=== PATIENT | female | born 1955 | race Caucasian/White ===

== ENCOUNTER → 2017-07-10 10:01 | Outpatient (POV) | payer MEDICARE, SELFPAY | PROVIDERS: Visit Provider Physician Assistant | DX: Z00.00 Encounter for general adult medical examination without abnormal findings (principal) ==

== ENCOUNTER → 2017-12-11 09:35 | Outpatient (POV) | payer MEDICARE, SELFPAY ==
[2017-12-11 11:20] LABS: Basophils # 0.1 K/mm3 (0-0.2); Basophils % 0.9 % (0.1-2.0); Eosinophils # 0.3 K/mm3 (0.0-0.4); Eosinophils % 4.7 % (0.1-12.0); Hematocrit 38.7 % (37.0-47.0); Hemoglobin 12.7 g/dL (12.2-16.2); Lymphocytes % 38.4 K/mm3 (10-50); Mean Corpuscular HGB Conc 32.9 g/dL (31.8-35.4); Mean Corpuscular Hemoglobin 32.1 pg (27.0-31.2); Mean Corpuscular Volume 97.8 fl (81-99); Mean Platelet Volume 8.4 fl (7.4-10.4); Monocytes # 0.4 K/mm3 (0.1-1.0); Monocytes % 7.9 % (1.7-9.3); Neutrophils # 2.5 K/mm3 (1.8-7.8); Platelet Count 230 K/mm3 (142-424); Red Blood Count 3.95 M/mm3 (4.20-5.40); White Blood Count 5.2 K/mm3 (4.8-10.8)
[2017-12-11 12:58] LABS: Alanine Aminotransferase 28 U/L (12-78); Albumin Level 4.5 gm/dL (3.4-5.0); Albumin/Globulin Ratio 1.6 (1.1-1.8); Alkaline Phosphatase 102 U/L (46-116); Anion Gap 16.3 mEq/L (5-15); Aspartate Amino Transferase 23 U/L (15-37); Bilirubin,Total 0.7 mg/dL (0.2-1.0); Blood Urea Nitrogen 11 mg/dL (7-18); Calcium 9.5 mg/dL (8.5-10.1); Carbon Dioxide 26 mmol/L (21.0-32.0); Chloride 105 mmol/L (98-107); Creatinine,Serum 1.08 mg/dL (0.55-1.02); Estimated Glomerular Filt Rate 52 ml/min (>60); GFR (African American) 62 ML/MIN (>60); Globulin 2.9 gm/dl (1.3-3.2); Glucose 99 mg/dL (74-106); Potassium 4.3 mmoL/L (3.5-5.1); Sodium 143 mmol/L (136-145); Total Protein,Serum 7.4 gm/dL (6.4-8.2)
== END ==
PROVIDERS: Visit Provider Physician Assistant
DX: L40.0 Psoriasis vulgaris (principal); Z79.899 Other long term (current) drug therapy
CPT/HCPCS: 36415; 80053; 85025

== ENCOUNTER → 2018-04-17 11:48 | Outpatient (POV) | payer MEDICARE, SELFPAY | PROVIDERS: Visit Provider Dermatology | DX: L40.0 Psoriasis vulgaris (principal); Z79.899 Other long term (current) drug therapy | CPT/HCPCS: 36415; 86480 ==

== ENCOUNTER → 2018-09-27 09:44 | Outpatient (CLI) | payer MEDICARE, SELFPAY ==
--- NOTE | 2018-09-27 09:48 | MM_ITS ---
MM Dig screening mamm BI w/CAD ORDERING PHYSICIAN : Khadijah Marques PATIENT AGE: 63 years GENDER: Female COMPARISON: January 2017, December 2015, November 2014. & 2014. Ultrasound from 2013 INDICATION: ITS.. Routine screening with no hormones no new complaints. Family history paternal aunt with breast cancer postmenopausal TECHNIQUE: Standard CC and MLO images were obtained. R2 CAD reviewed. FINDINGS: Mild to moderate residual fibroglandular elements are seen at superior right breast bilaterally most evident on the right. These yield mild asymmetry which is similar to previous studies RIGHT BREAST:. No new areas of significant concern The more evident asymmetric area of of glandular tissue at the upper outer quadrant right breast is a long-standing feature which is been present on studies dating back to at least 2013. Previous ultrasounds here of show no abnormality either. No new areas of concern otherwise follow-up in one year recommended. LEFT BREAST:No new areas of concern. Follow-up in one year. IMPRESSION: Stable bilateral mammogram with no significant new findings. Stable mild area of fibroglandular asymmetry again seen at superior right breast. Unchanged Bilateral follow-up in one year recommended BI-RADS Category: 2 Benign Finding(s) RECOMMENDED FOLLOW-UP: 1YR 1 YEAR FOLLOW-UP (A letter has been sent to the patient regarding results of the study.)
== END ==
PROVIDERS: PCP Internal Medicine Adolescent Medicine; Visit Provider Nurse Practitioner Family
DX: Z12.31 Encounter for screening mammogram for malignant neoplasm of breast (principal)
CPT/HCPCS: 77067

== ENCOUNTER → 2018-11-27 09:36 | Outpatient (CLI) | payer MEDICARE, SELFPAY ==
[2018-11-27 14:18] LABS: Basophils % 0.5 % (0.1-2.0); Eosinophils # 0.4 K/mm3 (0.0-0.4); Eosinophils % 6.1 % (0.1-12.0); Hematocrit 35.3 % (37.0-47.0); Hemoglobin 12.4 g/dL (12.2-16.2); Mean Corpuscular Hemoglobin 33.1 pg (27.0-31.2); Mean Corpuscular Volume 94.4 fl (81-99); Mean Platelet Volume 8.5 fl (7.4-10.4); Monocytes # 0.3 K/mm3 (0.1-1.0); Monocytes % 5.6 % (1.7-9.3); Neutrophils # 2.4 K/mm3 (1.8-7.8); Neutrophils % 38.7 % (37.0-80.0); Platelet Count 241 K/mm3 (142-424); Red Blood Count 3.74 M/mm3 (4.20-5.40); Red Cell Distribution Width 12.5 % (11.5-17.5); White Blood Count 6.1 K/mm3 (4.8-10.8)
[2018-11-27 14:32] LABS: Alanine Aminotransferase 31 U/L (12-78); Albumin Level 4.1 gm/dL (3.4-5.0); Albumin/Globulin Ratio 1.6 (1.1-1.8); Alkaline Phosphatase 73 U/L (46-116); Anion Gap 14.1 mEq/L (5-15); Aspartate Amino Transferase 21 U/L (15-37); Bilirubin,Total 1.1 mg/dL (0.2-1.0); Blood Urea Nitrogen 9 mg/dL (7-18); Calcium 8.7 mg/dL (8.5-10.1); Carbon Dioxide 28 mmol/L (21.0-32.0); Chloride 101 mmol/L (98-107); Chol/HDL Ratio 2.7 (1-3.5); Cholesterol 124 mg/dL (140-200); Creatinine,Serum 1.22 mg/dL (0.55-1.02); Estimated Glomerular Filt Rate 45 ml/min (>60); GFR (African American) 54 ML/MIN (>60); Globulin 2.6 gm/dl (1.3-3.2); Glucose 123 mg/dL (74-106); HDL Cholesterol 46 mg/dL (29-89); LDL Cholesterol 41 mg/dL (0-130); Potassium 4.1 mmoL/L (3.5-5.1); Sodium 139 mmol/L (136-145); Thyroid Stimulating Hormone 1.68 uIU/ml (0.358-3.740); Total Protein,Serum 6.7 gm/dL (6.4-8.2); Triglycerides 183 mg/dL (30-200); VLDL Cholesterol 37 mg/dL (0-40)
[2018-11-28 18:34] LABS: Hemoglobin A1C 4.9 % (0.0-7.0)
== END ==
PROVIDERS: PCP Nurse Practitioner Family; Visit Provider Nurse Practitioner Family
DX: J43.1 Panlobular emphysema (principal); E78.5 Hyperlipidemia, unspecified; E03.9 Hypothyroidism, unspecified; R73.9 Hyperglycemia, unspecified
CPT/HCPCS: 36415; 80053; 80061; 83036; 84443; 85025

== ENCOUNTER → 2018-12-11 09:55 | Outpatient (POV) | payer MEDICARE, SELFPAY | PROVIDERS: Visit Provider Dermatology | DX: Z00.00 Encounter for general adult medical examination without abnormal findings (principal) ==

== ENCOUNTER → 2019-01-25 13:37 | Outpatient (CLI) | payer MEDICARE, SELFPAY ==
--- NOTE | 2019-01-25 13:42 | CT_ITS ---
CT lung screening EXAM: CT LUNG LOW DOSE WO CONTRAST HISTORY: 30 pack-year smoking history, asymptomatic for lung cancer ITS.REASON: CURRENT TOBACCO USE ORDERING PHYSICIAN: Sixto Savage MD PATIENT AGE: 63 years COMPARISON: 10/17/2016 TECHNIQUE: The exam was performed on a GE Light Speed [address] scanner using 0.90 mGy CTDI. A low dose helical CT CHEST was performed on a multi-detector scanner. All CT scans at the facility use one or more dose reduction, viz: automated exposure control, ma/kV adjustment per patient size (including targeted exams where dose is matched to indication, i.e. head), or iterative reconstruction technique. The LDCT was performed in a facility that meets the criteria for the screening program. Data regarding this exam was submitted to ACR which is an approved registry. The order for this exam indicates that it came as a result of a lung cancer screening counseling shard decision-making visit that included all the elements required of such a visit including smoking cessation. The radiologist interpreting this exam meets the CMS criteria for the LDCT lung cancer screening program. The exam is reported using the Lung-RADS classification scale and reported to the ACR registry. NOTE: This study was performed for the specific purposes of lung cancer screening and is not an alternative to diagnostic chest CT. RADIATION DOSE: CTDI vol(CT dose Index-volume) = 2.90mG DLP (Dose Length Product) = 102.90 mGcm FINDINGS: Hyperinflation with attenuation of the peripheral pulmonary vessels consistent with COPD. There are scattered small pulmonary nodular opacities most of which are not significantly changed. A new 5 mm opacity is present in the right lung base laterally axial image #58. A 5 mm nodule is present in left upper lobe unchanged. There is some mild calcification in the right adrenal gland unchanged. Old granulomatous disease . IMPRESSION: 1. Lung RADS Category: 3, probably benign. 5 mm nodule right lower lobe 2. Other findings: COPD, old granulomatous disease RECOMMENDATIONS: [address] follow-up
--- NOTE | 2019-01-25 13:42 | XR_ITS ---
XR DEXA axial skeleton HISTORY: ITS.REASON: POST MENOPAUSAL SCREENING ORDERING PHYSICIAN: Sixto Savage MD PATIENT AGE: 63 years COMPARISON: 02/08/2017 FINDINGS: The BMD measured at the Left femoral neck is 0.844 g/cm squared with a T score of -1.4. This is considered Osteopenic according to the World Health Organization criteria. Fracture risk is Moderate. Treatment is advised. L1 L4 density has a T score of -0.2 and has decreased by 4.6% the mean density of the hips has decreased by 2% IMPRESSION: Osteopenia with moderate fracture risk. Treatment is advised. Suggest follow-up exam January 2021
== END ==
PROVIDERS: Visit Provider Internal Medicine Adolescent Medicine
DX: Z12.2 Encounter for screening for malignant neoplasm of respiratory organs (principal); Z87.891 Personal history of nicotine dependence; Z78.0 Asymptomatic menopausal state; Z13.820 Encounter for screening for osteoporosis
CPT/HCPCS: 77080

== ENCOUNTER → 2019-02-05 13:18 | Outpatient (CLI) | payer MEDICARE, SELFPAY ==
[2019-02-10 16:27] LABS: QuantiFERON-TB Gold Plus Negative (Negative)
== END ==
PROVIDERS: Visit Provider Dermatology
DX: L40.0 Psoriasis vulgaris (principal); Z79.899 Other long term (current) drug therapy
CPT/HCPCS: 36415; 86480

== ENCOUNTER → 2019-03-26 08:30 | Outpatient (POV) | payer MEDICARE, SELFPAY | PROVIDERS: Visit Provider Dermatology | DX: Z00.00 Encounter for general adult medical examination without abnormal findings (principal) ==

== ENCOUNTER 2019-03-30 11:28 | Observation (INO) ==
--- NOTE | 2019-03-30 11:41 | History & Physical Report ---
*Admission Date: 03/30/19 *Chief complaint: SOA/chest pain *History of present illness: Patient has noted chest pain over the past year or but has been very intermittent, but over the past 4 or 5 days it has accelerated and she's been having multiple episodes when she is driving, walking or moving about in her home that she describes as a tightness in her chest that goes up into both sides of her throat. Notes associated shortness of air and diaphoresis. No history of cardiac disease, but multiple risk factors with hyperlipidemia, smoking issues and psoriatic arthritis. Has never had stress testing or cardiac workup. Presented to my office this morning where EKG showed no ST changes but slightly prolonged QT interval, but given her significant risk factors she was admitted to hospital with diagnoses of unstable angina for cardiology consultation. [facility] History I have reviewed the patient's past medical history: Yes Medical History: Reports:: Hyperlipidemia Denies:: Diabetes Mellitus Type 1, Diabetes Mellitus Type 2, Internal Pacem samantha, Lung Disease, Seizures *Have you ever received a pneumonia vaccine?: Yes *Have you received a flu vaccine this season?: No Comment:: Psoriatic arthritis. History of depression. Remote alcoholism. IN remission Other Surgeries: Yes: Colonoscopy (2016 - benign polyps), Dilation and Curettage, Tubal Ligation. No: Pacemaker - *Social History Smoking Status: Current every day smoker Alcohol Intake: former Substance Use Type: denies use *Occupational Status:: employed *Travel in the last 8 weeks: None Family Hx:: No significant family history Review of Systems - Review of Systems Review of systems:: pertinent systems reviewed and negative unless documented be low - *Cardiovascular Reports chest pain, Reports chest pain at rest, Reports shortness of breath, Reports rapid, pounding, or irregular heartbeat - *Respiratory Reports shortness of breath with activity Meds Home Medications Medication Instructions Recorded Confirmed Type Adalimumab [Humira Pen] 40 mg SQ WEEKLY 03/08/19 03/30/19 History Atorvastatin Calcium [Atorvastatin 40 mg PO HS 03/08/19 03/30/19 History 40mg Tab] Calcium Carb/Vitamin D3/Vit K1 1 each PO DAILY 03/08/19 03/30/19 History [Calcium + D Soft Chewable Tab] Gabapentin 600 mg PO BID 03/08/19 03/30/19 History Levothyroxine Sodium [Synthroid 0 mcg PO DAILY 03/08/19 03/30/19 History 25mcg (0.025mg) tablet] Meloxicam 7.5 mg PO DAILY 03/08/19 03/30/19 History Paroxetine Mesylate [Pexeva] 40 mg PO DAILY 03/08/19 03/30/19 History Trazodone HCl 100 mg PO HS 03/08/19 03/30/19 History Albuterol Sulfate [Proair 90 mcg IH QID PRN 03/30/19 03/30/19 History Respiclick] Cetirizine HCl 10 mg PO DAILY 03/30/19 03/30/19 History Clobetasol Propionate 50 ml TP BID 03/30/19 03/30/19 History Fluticasone Propionate [Flovent 50 mcg IH DAILY 03/30/19 03/30/19 History Diskus] Allergies Allergy/AdvReac Type Severity Reaction Status Date / Time bacitracin Allergy Rash Verified 03/30/19 13:49 [From Neosporin ([id number])] neomycin Allergy Rash Verified 03/30/19 13:49 [From Neosporin ([id number])] polymyxin B Allergy Rash Verified 03/30/19 13:49 [From Neosporin ([id number])] Exam - Constitutional no acute distress, average body habitus, cooperative - *Routine HEENT Exam Head: Present: normocephalic, atraumatic Eye: Present: EOMI, PERRL ENT: Present: mucous membranes moist - *Routine Neck Exam Present: supple. Absent: JVD, carotid bruit, lymphadenopathy - *Routine Respiratory Exam Present: CTA bilaterally - *Routine Cardiovascular Exam Present: RRR, Normal S1, Normal S2. Absent: murmur - *Routine Abdominal Exam Present: soft, normoactive bowel sounds. Absent: tenderness - *Routine Extremities Exam Absent: cyanosis, clubbing, edema - *Routine Skin Exam Present: warm. Absent: rash - *Routine Neurological Exam Present: alert, oriented X3 Assessment and Plan (1) Unstable angina Current visit: Yes Status: Acute Category: Medical Code(s): I20.0 - Unstable angina Significant symptoms.... poor risk factor profile... admit for cards eval and needs [facility]. Stress testing will not change managment plan. (2) Personal history of nicotine dependence Current visit: Yes Status: Acute Category: Medical Code(s): Z87.891 - Personal history of nicotine dependence (3) Hyperlipemia Current visit: Yes Status: Acute Category: Medical Code(s): E78.5 - Hyperlipidemia, unspecified (4) Hypertension Current visit: Yes Status: Acute Category: Medical Code(s): I10 - Essential (primary) hypertension
[2019-03-30 12:41] LABS: Alanine Aminotransferase 26 U/L (12-78); Albumin Level 4.5 gm/dL (3.4-5.0); Albumin/Globulin Ratio 1.4 (1.1-1.8); Alkaline Phosphatase 74 U/L (46-116); Aspartate Amino Transferase 26 U/L (15-37); Bilirubin,Total 0.6 mg/dL (0.2-1.0); Blood Urea Nitrogen 11 mg/dL (7-18); Calcium 9.4 mg/dL (8.5-10.1); Carbon Dioxide 28 mmol/L (21.0-32.0); Chloride 103 mmol/L (98-107); Globulin 3.2 gm/dl (1.3-3.2); Glucose 91 mg/dL (74-106); Sodium 138 mmol/L (136-145); Total Protein,Serum 7.7 gm/dL (6.4-8.2)
[2019-03-30 14:17] LABS: Basophils # 0.1 K/mm3 (0-0.2); Basophils % 1.1 % (0.1-2.0); Eosinophils # 0.5 K/mm3 (0.0-0.4); Eosinophils % 6.7 % (0.1-12.0); Hematocrit 38.9 % (37.0-47.0); Hemoglobin 12.2 g/dL (12.2-16.2); Lymphocytes # 3.5 K/mm3 (0.7-4.5); Lymphocytes % 47.7 % (10-50); Mean Corpuscular HGB Conc 31.3 g/dL (31.8-35.4); Mean Corpuscular Volume 102.1 fl (81-99); Mean Platelet Volume 8.4 fl (7.4-10.4); Monocytes # 0.6 K/mm3 (0.1-1.0); Monocytes % 7.9 % (1.7-9.3); Neutrophils # 2.7 K/mm3 (1.8-7.8); Neutrophils % 36.5 % (37.0-80.0); Platelet Count 303 K/mm3 (142-424); Red Blood Count 3.82 M/mm3 (4.20-5.40); Red Cell Distribution Width 13.4 % (11.5-17.5); White Blood Count 7.4 K/mm3 (4.8-10.8)
--- NOTE | 2019-03-30 18:49 | Discharge Summary ---
General - General Admission date:: 03/30/19 Discharge date: 03/30/19 HPI HPI: Patient has noted chest pain over the past year or but has been very intermittent, but over the past 4 or 5 days it has accelerated and she's been having multiple episodes when she is driving, walking or moving about in her home that she describes as a tightness in her chest that goes up into both sides of her throat. Notes associated shortness of air and diaphoresis. No history of cardiac disease, but multiple risk factors with hyperlipidemia, smoking issues and psoriatic arthritis. Has never had stress testing or cardiac workup. Presented to my office this morning where EKG showed no ST changes but slightly prolonged QT interval, but given her significant risk factors she was admitted to hospital with diagnoses of unstable angina for cardiology consultation. Hospital Course Hospital Course: Patient was admitted to hospital, ruled out for STEMI, but because of her significant symptomatology and risk factors, namely heavy cigarette use, hypertension and hyperlipidemia, she was subjected to left heart catheterization. Please see report below: ANGIOGRAPHIC RESULTS The left main artery Normal The left anterior descending artery Is proximally normal and a tortuous vessel with no stenosis greater than 10% throughout The circumflex artery Gives rise to a large ramus intermedius which has a proximal concentric 20 to 30% stenosis. The remaining circumflex artery has mild 10% luminal irregularities. The vessel is tortuous throughout The right coronary artery Is a large dominant vessel and has proximal and mid vessel smooth 10 to 20% stenoses The DAILY ventriculogram reveals Normal 65% The left ventricular end-diastolic pressure 15 mmHg IMPRESSION Mild [id number] coronary artery disease Normal ejection fraction Very minimally elevated LVEDP PLAN 1. Medical management 2. Evaluation of noncardiac chest pain 3. Standard risk factor modification Given this result patient was counseled about tobacco cessation. She is willing to try nicotine patch, we will also initiate aspirin therapy, and I will follow her in the office in the next week to 10 days. Objective Vital signs: Temp Pulse Resp BP Pulse Ox 98.4 F 82 19 112/62 96 03/30/19 15:59 03/30/19 18:40 03/30/19 18:40 03/30/19 18:40 03/30/19 18:40 no acute distress - *Routine HEENT Exam Head: Present: normocephalic Eye: Present: EOMI - *Routine Neck Exam Present: supple, full ROM. Absent: JVD - *Routine Respiratory Exam Present: CTA bilaterally - *Routine Cardiovascular Exam Present: RRR, Normal S1, Normal S2 - *Routine Abdominal Exam Present: soft, normoactive bowel sounds - *Routine Extremities Exam Present: full ROM. Absent: cyanosis, clubbing, edema - *Routine Skin Exam Present: intact. Absent: cyanosis - *Routine Neurological Exam Present: alert, oriented X3 - Detailed Eye Exam Eyelids: Left normal inspection Results Labs on day of discharge: Labs from last 24 hours 03/30/19 03/30/19 03/30/19 12:20 12:20 12:20 WBC 7.4 RBC 3.82 L Hgb 12.2 Hct 38.9 MCV 102.1 H MCH 32.0 H MCHC 31.3 L RDW 13.4 Plt Count 303 MPV 8.4 Neut % (Auto) 36.5 L Lymph % (Auto) 47.7 Stark % (Auto) 7.9 Eos % (Auto) 6.7 Baso % (Auto) 1.1 Neut # (Auto) 2.7 Lymph # (Auto) 3.5 [place] # (Auto) 0.6 Eos # (Auto) 0.5 H Baso # (Auto) 0.1 Sodium 138 Potassium 4.0 Chloride 103 Carbon Dioxide 28 Anion Gap 11.0 BUN 11 Creatinine 1.13 H Estimated GFR 49 L Est GFR ( Amer) 59 Glucose 91 Calcium 9.4 Magnesium 1.8 Total Bilirubin 0.6 AST 26 ALT 26 Alkaline Phosphatase 74 Troponin I < 0.02 Total Protein 7.7 Albumin 4.5 Globulin 3.2 Albumin/Globulin Ratio 1.4 DS: Diagnosis - Discharge Diagnosis (1) Unstable angina Status: Ruled-out (2) Personal history of nicotine dependence Status: Chronic (3) Hyperlipemia Status: Chronic (4) Hypertension Status: Chronic (5) Coronary atherosclerosis of [place] coronary vessel Status: Chronic Discharge Plan - Patient Discharge Instructions ACTIVITY: Continue current activity DIET: continue same diet - Follow up Plan Follow up with: Sixto Savage MD [Primary Care Provider] - 04/09/19 Disposition: Home, Self-M[facility] Medications: Home Medications Medication Instructions Recorded Confirmed Type Adalimumab [Humira Pen] 40 mg SQ WEEKLY 03/08/19 03/30/19 History Atorvastatin Calcium [Atorvastatin 40 mg PO HS 03/08/19 03/30/19 History 40mg Tab] Calcium Carb/Vitamin D3/Vit K1 1 each PO DAILY 03/08/19 03/30/19 History [Calcium + D Soft Chewable Tab] Gabapentin 600 mg PO BID 03/08/19 03/30/19 History Levothyroxine Sodium [Synthroid 0 mcg PO DAILY 03/08/19 03/30/19 History 25mcg (0.025mg) tablet] Meloxicam 7.5 mg PO DAILY 03/08/19 03/30/19 History Paroxetine Mesylate [Pexeva] 40 mg PO DAILY 03/08/19 03/30/19 History Trazodone HCl 100 mg PO HS 03/08/19 03/30/19 History Albuterol Sulfate [Proair 90 mcg IH QID PRN 03/30/19 03/30/19 History Respiclick] Aspirin [Aspirin 81mg EC Tab] 81 mg PO DAILY #90 tablet. 03/30/19 Rx Cetirizine HCl 10 mg PO DAILY 03/30/19 03/30/19 History Clobetasol Propionate 50 ml TP BID 03/30/19 03/30/19 History Fluticasone Propionate [Flovent 50 mcg IH DAILY 03/30/19 03/30/19 History Diskus] Nicotine [Nicoderm 21mg/24hr 21 mg TD DAILY #30 patch.td24 03/30/19 Rx patch] Prescriptions/Medication Reconciliation: New Aspirin [Aspirin 81mg EC Tab] 81 mg PO DAILY #90 tablet. Nicotine [Nicoderm 21mg/24hr patch] 21 mg TD DAILY #30 patch.td24 Continued Atorvastatin Calcium [Atorvastatin 40mg Tab] 40 mg PO HS Meloxicam 7.5 mg PO DAILY Gabapentin 600 mg PO BID Adalimumab [Humira Pen] 40 mg SQ WEEKLY Levothyroxine Sodium [Synthroid 25mcg (0.025mg) tablet] 0 mcg PO DAILY Fluticasone Propionate [Flovent Diskus] 50 mcg IH DAILY Cetirizine HCl 10 mg PO DAILY Clobetasol Propionate 50 ml TP BID Albuterol Sulfate [Proair Respiclick] 90 mcg IH QID PRN PRN Reason: Dyspnea Trazodone HCl 100 mg PO HS Paroxetine Mesylate [Pexeva] 40 mg PO DAILY Calcium Carb/Vitamin D3/Vit K1 [Calcium + D Soft Chewable Tab] 1 each PO DAILY - Problem Reconciliation Problems Reviewed?: Yes
== END 2019-03-30 19:47 | disposition home or self-care (01) ==
LOC: 2ND 11:28 → INTOOBSV 11:28
PROVIDERS: ADMIT Internal Medicine Adolescent Medicine; ATTEND Internal Medicine Adolescent Medicine
CPT/HCPCS: 71020; 71046; 80053; 83735; 84484; 85025; 93458; 99152; C1725; C1769; G0378; J1644; Q9967

== ENCOUNTER → 2019-04-24 10:48 | Outpatient (CLI) | payer MEDICARE, SELFPAY | PROVIDERS: PCP Internal Medicine Adolescent Medicine; Visit Provider Physician Assistant | DX: R06.00 Dyspnea, unspecified; I20.0 Unstable angina; E78.5 Hyperlipidemia, unspecified; I10 Essential (primary) hypertension; Z87.891 Personal history of nicotine dependence | CPT/HCPCS: 93306 ==

== ENCOUNTER → 2019-08-06 09:59 | Outpatient (CLI) | payer MEDICARE, SELFPAY ==
[2019-08-06 14:38] LABS: Alanine Aminotransferase 27 U/L (9-52); Albumin Level 4.2 g/dL (3.4-5.0); Albumin/Globulin Ratio 1.8 (1.1-1.8); Alkaline Phosphatase 72 U/L (46-116); Anion Gap 14.1 mEq/L (5-15); Aspartate Amino Transferase 20 U/L (15-37); Bilirubin,Total 0.5 mg/dL (0.2-1.0); Blood Urea Nitrogen 9 mg/dL (7-18); Calcium 9.1 mg/dL (8.5-10.1); Carbon Dioxide 29 mmol/L (21.0-32.0); Chloride 105 mmol/L (98-107); Chol/HDL Ratio 2.4 (1-3.5); Cholesterol 124 mg/dL (140-200); Creatinine,Serum 1.17 mg/dL (0.55-1.02); Estimated Glomerular Filt Rate 47 ml/min (>60); GFR (African American) 57 ML/MIN (>60); Globulin 2.4 gm/dl (1.3-3.2); Glucose 90 mg/dL (74-106); HDL Cholesterol 52 mg/dL (29-89); LDL Cholesterol 48 mg/dL (0-130); Potassium 4.1 mmoL/L (3.5-5.1); Sodium 144 mmol/L (137-145); Thyroid Stimulating Hormone 1.33 uIU/ml (0.358-3.740); Total Protein,Serum 6.6 g/dL (6.4-8.2); Triglycerides 122 mg/dL (30-200); VLDL Cholesterol 24 mg/dL (0-40)
[2019-08-07 16:29] LABS: Vitamin D 25 Hydroxy 56.1 ng/mL (30.0-100.0)
== END ==
PROVIDERS: PCP Nurse Practitioner Family; Visit Provider Nurse Practitioner Family
DX: E78.5 Hyperlipidemia, unspecified (principal); E03.9 Hypothyroidism, unspecified; M85.80 Other specified disorders of bone density and structure, unspecified site
CPT/HCPCS: 36415; 80053; 80061; 82652; 84443

== ENCOUNTER 2019-11-25 15:33 | Emergency (ER) | payer MEDICARE, SELFPAY ==
--- NOTE | 2019-11-25 15:45 | PC.NURSE ---
WHILE SITTING IN [facility] WAITING ROOM FILLING OUT HER PAPERWORK, PATIENT STATES THAT SHE WANTS TO BE SEEN IN ER INSTEAD. PATIENT TAKEN OVER PER THIS NURSE AFTER SPEAKING WITH REGISTRATION. Desi KEARNEY RN MADE AWARE OF CIRCUMSTANCES
[2019-11-25 15:50] VITALS: BP 124/63; PULSE 85; RESP 22; TEMP 36.7; O2SAT 94; BMI 26.9
--- NOTE | 2019-11-25 16:00 | PC.NURSE ---
asked pt for a urine sample and she states that she doesn't not have to pee right now. Informed pt that as soon as she could we would need a sample. pt understands.
--- NOTE | 2019-11-25 16:01 | CT_ITS ---
PROCEDURE: CT LUMBAR SPINE WO CON CLINICAL HISTORY: BACK PAIN Low back pain COMPARISON: No exams were available for comparison TECHNIQUE: Axial images obtained with sagittal and coronal reformats. All CT scans at the facility use one or more dose reduction, viz: automated exposure control, ma/kV adjustment per patient size (including targeted exams where dose is matched to indication, i.e. head), or iterative reconstruction technique. FINDINGS: There is degenerative disc disease in the lower thoracic spine. L1-L2: Unremarkable. L2-L3: Mild bulging disc. L3-L4: Mild bulging disc.. There is facet and ligamentum hypertrophy with mild bilateral lateral recess and mild bilateral foraminal narrowing. L4-5: Mild anterolisthesis of L4 of 3-4 mm with bulging disc along with facet ligamentum hypertrophy with moderate bilateral foraminal narrowing L5-S1: Unremarkable. No fracture or dislocation. There is mildly enlarged right adrenal gland with some coarse calcification. There is a prominent duodenal diverticulum. IMPRESSION: 1. Mild multilevel lumbar spondylosis as described above 2. No acute fracture Dictated by: Jesus Do MD 11/25/2019 21:38 Electronically signed by Jesus Do MD in [place] 11/25/2019 21:38
--- NOTE | 2019-11-25 16:08 | PC.NURSE ---
PT ATTEMPTING TO PROVIDE URINE SAMPLE AT THIS TIME
--- NOTE | 2019-11-25 16:18 | HMH.EDBACK ---
ED Disposition Clinical Impression: Lumbar radiculopathy, Lumbar facet joint pain Disposition: Home, Self-Care Condition on Discharge: Good Instructions: DI for Back Pain With Sciatica Additional Instructions: use meds and call pcp in am Prescriptions: Hydrocod/Acet 5/325 mg [[place] 5/325mg tablet] 1 tab PO TID PRN #7 tab PRN Reason: Moderate To Severe Pain Prescription Printed predniSONE [Prednisone 20mg Tab] 20 mg PO BID #10 tab Prescription Printed Referrals: Sixto Savage MD [Primary Care Provider] - - Critical Care Critical Care Time: No Attestation: On 11/25/19, the high probability of a clinically significant, sudden or life threatening deterioration of the following system(s) required my full and direct attention, intervention and personal management. The time I documented below is in addition to time spent performing reported procedures but includes the following listed in this critical care notation. Medical Decision Making - Medical Records Medical records reviewed: Yes: I reviewed the patient's medical records. - Jaivd Inquiry Pt receiving controlled substance: No Vital Signs: 11/25/19 15:50 Temperature 98.1 F Temperature Source Oral Pulse Rate [Left Radial] 85 Respiratory Rate 22 Blood Pressure [Left Arm] 124/63 Blood Pressure Mean [Left Arm] 83 Blood Pressure Source [Left Arm] Automatic Cuff Blood Pressure Position [Left Arm] Right Lateral 02 Sat by Pulse Oximetry 94 L Oxygen Delivery Method Room Air - Lab Data Lab results reviewed: Yes: I reviewed the patient's lab results. Lab Results 11/25/19 16:15: Urine Color Yellow, Urine Appearance Clear, Urine pH 6.0, Ur Specific [place] 1.015, Urine Protein Negative, Urine Glucose (UA) Negative, Urine Ketones Negative, Urine Blood Negative, Urine Nitrate Negative, Urine Bilirubin Negative, Urine Urobilinogen 0.2, Ur Leukocyte Esterase Negative, Urine WBC 3-5, Ur Squamous Epith Cells Occasional, Urine Bacteria Trace 11/25/19 16:15: Urine Opiates Screen Negative, Urine Methadone Screen Negative, Ur Barbituates Screen Negative, Ur Phencyclidine Scrn Negative, Ur Amphetamines Screen Negative, U Benzodiazepines Scrn Negative, Urine Cocaine Screen Negative, U Marijuana (THC) Screen Negative 11/25/19 16:20: WBC 8.8, RBC 3.61 L, Hgb 12.3, Hct 35.7 L, MCV 98.9, MCH 34.2 H, MCHC 34.5, RDW 12.9, Plt Count 262, MPV 8.0, Neut % (Auto) 52.8, Lymph % (Auto) 33.8, [place] % (Auto) 6.2, Eos % (Auto) 5.6, Baso % (Auto) 1.6, Neut # (Auto) 4.7, Lymph # (Auto) 3.0, [place] # (Auto) 0.6, Eos # (Auto) 0.5 H, Baso # (Auto) 0.1 11/25/19 16:20: Sodium 136, Potassium 3.7, Chloride 102, Carbon Dioxide 25, Anion Gap 12.7, BUN 14, Creatinine 1.20 H, Estimated Creat Clear 57, Estimated GFR 45 L, Est GFR ( Amer) 55 L, Glucose 103 H, Calcium 8.9, Total Bilirubin 0.5, AST 31, ALT 17, Alkaline Phosphatase 74, C-Reactive Protein 1.1, Total Protein 7.8, Albumin 4.9, Globulin 2.9, Albumin/Globulin Ratio 1.7 Result diagrams: 11/25/19 16:20 11/25/19 16:20 Orders (Tests/Meds): ED MEDICATIONS Discontinued Medications Generic Name Dose Route Start Last Admin Trade Name Natalie PRN Reason Stop Dose Admin Ketorolac Tromethamine 30 mg 11/25/19 16:26 11/25/19 16:48 Toradol 30mg/Ml Vial IV 11/25/19 16:27 30 mg ONCE ONE Administration Methylprednisolone Sodium Succinate 125 mg 11/25/19 16:26 11/25/19 16:48 Solu-Medrol 125mg/2ml Vial IV 11/25/19 16:27 125 mg ONCE ONE Administration Morphine Sulfate 4 mg 11/25/19 16:07 11/25/19 16:23 Morphine 4mg/Ml Syringe IV 11/25/19 16:08 4 mg ONCE ONE Administration Ondansetron HCl 4 mg 11/25/19 16:07 11/25/19 16:23 Zofran 4mg/2ml Vial IV 11/25/19 16:08 4 mg ONCE ONE Administration ORDERS Category Date Time Status CT lumbar spine wo con Stat Cat Scan 11/25/19 16:01 Taken ESR [Erythrocyte Sedimentation Rate] Stat Lab 11/25/19 16:20 Received - CT Data CT Scan: L-Spine T
[2019-11-25 16:33] LABS: Microscopic, Urine URINE MICROSCOPIC (MICROSCOPIC)
--- NOTE | 2019-11-25 16:33 | PC.NURSE ---
Dr Iker peters who is covering for Dr Savage
[2019-11-25 16:34] LABS: Appearance,Urine CLEAR (Clear); Bilirubin,Urine Negative (Negative); Blood, Urine Negative (Negative); Color,Urine YELLOW (Yellow); Glucose,Urine (UA) Negative (Negative); Ketones,Urine Negative (Negative); Leukocyte Esterase,Urine Negative (Negative); Nitrate,Urine Negative (Negative); Protein,Urine Negative (Negative); Specific Gravity, Urine 1.015 (1.005-1.030); Urobilinogen,Urine 0.2 EU/dl (0.2)
[2019-11-25 16:44] LABS: Chloride 102 mmol/L (98-107); Potassium 3.7 mmoL/L (3.5-5.1); Sodium 136 mmol/L (136-145)
[2019-11-25 16:45] LABS: Basophils # 0.1 K/mm3 (0-0.2); Basophils % 1.6 % (0.1-2.0); Eosinophils # 0.5 K/mm3 (0.0-0.4); Eosinophils % 5.6 % (0.1-12.0); Hematocrit 35.7 % (37.0-47.0); Hemoglobin 12.3 g/dL (12.2-16.2); Lymphocytes % 33.8 % (10-50); Mean Corpuscular HGB Conc 34.5 g/dL (31.8-35.4); Mean Corpuscular Hemoglobin 34.2 pg (27.0-31.2); Mean Corpuscular Volume 98.9 fl (81-99); Monocytes # 0.6 K/mm3 (0.1-1.0); Monocytes % 6.2 % (1.7-9.3); Neutrophils # 4.7 K/mm3 (1.8-7.8); Neutrophils % 52.8 % (37.0-80.0); Platelet Count 262 K/mm3 (142-424); Red Blood Count 3.61 M/mm3 (4.20-5.40); Red Cell Distribution Width 12.9 % (11.5-17.5); White Blood Count 8.8 K/mm3 (4.8-10.8)
[2019-11-25 16:46] LABS: Amphetamine/Metha Screen,Urine Negative ng/ml (<1000)
[2019-11-25 16:46] LABS: Alanine Aminotransferase 17 U/L (12-78); Aspartate Amino Transferase 31 U/L (14-36); Blood Urea Nitrogen 14 mg/dl (7-17); Creatinine Clearance Estimated 57 mL/min (50-200); Estimated Glomerular Filt Rate 45 ml/min (>60); GFR (African American) 55 ML/MIN (>60)
[2019-11-25 16:47] LABS: Barbiturates Screen,Urine Negative ng/ml (<200)
[2019-11-25 16:47] LABS: Albumin Level 4.9 g/dl (3.5-5.0); Albumin/Globulin Ratio 1.7 (1.1-1.8); Alkaline Phosphatase 74 U/L (38-126); Anion Gap 12.7 mEq/L (5-15); Bilirubin,Total 0.5 mg/dl (0.2-1.3); Calcium 8.9 mg/dl (8.4-10.2); Carbon Dioxide 25 mmol/L (22.0-30.0); Globulin 2.9 g/dL (1.3-3.2); Glucose 103 mg/dl (74-100); Total Protein,Serum 7.8 g/dl (6.3-8.2)
[2019-11-25 16:48] LABS: Benzodiazepines Screen,Urine Negative ng/ml (<200); Cannabinoid Screen,Urine Negative ng/ml (<50)
[2019-11-25 16:49] LABS: Cocaine Screen,Urine Negative ng/ml (<300)
[2019-11-25 16:50] LABS: Methadone Screen,Urine Negative ng/ml (<300); Opiate Screen,Urine Negative ng/ml (<300)
[2019-11-25 16:51] LABS: Phencyclidine Screen,Urine Negative ng/ml (<25)
--- NOTE | 2019-11-25 17:04 | PC.NURSE ---
SPEAKING WITH DR WHITAKER AT THIS TIME.
[2019-11-25 17:18] LABS: C-Reactive Protein 1.1 mg/L (0-4)
[2019-11-25 17:18] LABS: Bacteria,Urine Trace /lpf; Squamous Epithelial Cell,Urine Occasional #/hpf (0-5)
[2019-11-25 17:31] LABS: Erythrocyte Sedimentation Rate 21 mm/hr (0-30)
[2019-11-25 17:45] VITALS: BP 121/68; PULSE 78; RESP 16; TEMP 36.6; O2SAT 98
== END 2019-11-25 17:46 | disposition home or self-care (01) ==
PROVIDERS: Emergency Provider Emergency Medicine; PCP Internal Medicine Adolescent Medicine
DX: M54.16 Radiculopathy, lumbar region (principal); I10 Essential (primary) hypertension; E78.5 Hyperlipidemia, unspecified; E03.9 Hypothyroidism, unspecified; F33.1 Major depressive disorder, recurrent, moderate; F17.210 Nicotine dependence, cigarettes, uncomplicated
CPT/HCPCS: 72131; 80053; 80305; 81001; 85025; 85651; 86140; 96374; 96375; 99282; 99283; J2405

== ENCOUNTER → 2019-11-26 07:51 | Outpatient (CLI) | payer MEDICARE, SELFPAY ==
--- NOTE | 2019-11-26 07:55 | CT_ITS ---
PROCEDURE: CT LUNG SCREENING CLINICAL INDICATION: H/O TOBACCO USE COMPARISON: LUNGSCREEN CT lung screening from 01/25/2019 TECHNIQUE: The exam was performed on a GE Light Speed [address] scanner using 2.90 mGy CTDI. A low dose helical CT CHEST was performed on a multi-detector scanner. All CT scans at the facility use one or more dose reduction, viz: automated exposure control, ma/kV adjustment per patient size (including targeted exams where dose is matched to indication, i.e. head), or iterative reconstruction technique. The LDCT was performed in a facility that meets the criteria for the screening program. Data regarding this exam was submitted to ACR which is an approved registry. The order for this exam indicates that it came as a result of a lung cancer screening counseling shard decision-making visit that included all the elements required of such a visit including smoking cessation. The radiologist interpreting this exam meets the [facility] criteria for the LDCT lung cancer screening program. The exam is reported using the Lung-RADS classification scale and reported to the ACR registry. NOTE: This study was performed for the specific purposes of lung cancer screening and is not an alternative to diagnostic chest CT. RADIATION DOSE: CTDI vol(CT dose Index-volume) = 2.90mG DLP (Dose Length Product) = 107.07 mGcm Lung Rads Category: FINDINGS: Changes of COPD and old granulomatous disease. Stable small nodular opacities. Minimal atelectatic or fibrotic change right lower lobe. The OTHER FINDINGS: No other pertinent findings evident. IMPRESSION: Lung rads category 2 benign. Recommend annual LDCT Dictated by: Jesus Do MD 12/15/2019 11:22 Electronically signed by Jesus Do MD in [place] 12/15/2019 11:22
--- NOTE | 2019-11-26 07:55 | MM_ITS ---
PROCEDURE: MM DIG SCREENING MAMM BI W/CAD Digital Breast Tomosynthesis Included CLINICAL INDICATION: Screening: There is a history of breast cancer in the patient's paternal aunt and maternal cousin. There has been a previous biopsy left breast for benign disease. COMPARISON: [facility] DIG MAMM-SCREEN SANG from 01/14/2016 [facility] DIG MAMM-SCREEN SANG W/CAD from 01/25/2017 [facility] MM Dig screening mamm BI w/CAD from 09/27/2018 TECHNIQUE: Standard CC and MLO images and 3D Tomosynthesis was obtained. R2 CAD reviewed. FINDINGS: The breasts are composed primarily of fat with minimal scattered fibroglandular densities in each breast. Again noted is minimal asymmetric glandular elements upper-outer quadrant right breast which are stable. There is benign-appearing calcification deep to the nipple of the left breast. There is no suspicious lesion and no suspicious microcalcifications. IMPRESSION: Fatty type breast parenchyma with no suspicious lesions seen BI-RAD Category: 2 Benign Finding(s) FOLLOW-UP: 1YR 1 Year Follow-up (A letter has been sent to the patient regarding results of the study.) Dictated by: Dr. Wang Ayers MD 11/27/2019 12:[address] Wang Ayers MD in [place] 11/27/2019 12:35
== END ==
PROVIDERS: PCP Nurse Practitioner Family; Visit Provider Internal Medicine Adolescent Medicine
DX: Z12.31 Encounter for screening mammogram for malignant neoplasm of breast (principal)
CPT/HCPCS: 77063; 77067

== ENCOUNTER → 2019-12-17 15:01 | Outpatient (CLI) | payer MEDICARE, SELFPAY ==
--- NOTE | 2019-12-17 | XR_ITS ---
PROCEDURE: XR HAND RT MIN 3V CLINICAL INDICATION: COMPARISON: No exams were available for comparison FINDINGS: There is slight dorsal displacement of a transverse fracture of the proximal metaphysis of the proximal phalanx of the 4th digit with overlying soft tissue edema. There is mild degenerate narrowing of the 1st metacarpal-carpal joint. IMPRESSION: Fracture of the 4th digit as above Dictated by: Josue Rosario 12/17/2019 15:37 Electronically signed by Josue Rosario in [place] 12/17/2019 15:37
== END ==
PROVIDERS: PCP Nurse Practitioner Family; Visit Provider Nurse Practitioner Family
DX: M79.641 Pain in right hand (principal); W06.XXXA Fall from bed, initial encounter
CPT/HCPCS: 73130

== ENCOUNTER → 2019-12-18 12:17 | Outpatient (CLI) | payer MEDICARE, SELFPAY ==
--- NOTE | 2019-12-18 12:36 | XR_ITS ---
PROCEDURE: XR CHEST 2V CLINICAL HISTORY: H/O TOBACCO DEPENDENCE,COPD COMPARISON: CXR CHEST(2 VIEWS-NOT PORTABLE) from 02/07/2014 CXR CHEST(2 VIEWS-NOT PORTABLE) from 03/24/2015 XR CHEST 2V from 03/30/2019 FINDINGS: There is a stable 4.5 centimeter calcified density within the left upper lobe. There is lower thoracic scoliosis. Lung [place], cardiac silhouette, and the soft tissues are intact. IMPRESSION: Stable left upper lobe calcified granuloma, clear lung [place] Dictated by: Josue Rosario 12/18/2019 13:22 Electronically signed by Josue Rosario in [place] 12/18/2019 13:22
[2019-12-18 12:46] LABS: Basophils # 0.1 K/mm3 (0-0.2); Basophils % 0.8 % (0.1-2.0); Eosinophils # 0.3 K/mm3 (0.0-0.4); Eosinophils % 3.7 % (0.1-12.0); Hematocrit 36.4 % (37.0-47.0); Hemoglobin 12.6 g/dL (12.2-16.2); Lymphocytes # 2.2 K/mm3 (0.7-4.5); Lymphocytes % 28.1 % (10-50); Mean Corpuscular HGB Conc 34.5 g/dL (31.8-35.4); Mean Corpuscular Hemoglobin 34.2 pg (27.0-31.2); Mean Platelet Volume 7.7 fl (7.4-10.4); Monocytes # 0.5 K/mm3 (0.1-1.0); Monocytes % 6.4 % (1.7-9.3); Neutrophils # 4.8 K/mm3 (1.8-7.8); Neutrophils % 61.1 % (37.0-80.0); Platelet Count 276 K/mm3 (142-424); Red Blood Count 3.68 M/mm3 (4.20-5.40); Red Cell Distribution Width 13.4 % (11.5-17.5); White Blood Count 7.8 K/mm3 (4.8-10.8)
--- NOTE | 2019-12-18 13:09 | ECG_ITS ---
APPROVED REPORT Exam: Resting ECG HR:64 bpm ECG Measurements Heart Rate 64 AXES OH 158 P 15 QRSd 92 QRS 48 QT 454 T 70 QTc 468 <Conclusion> Normal sinus rhythm Nonspecific T wave abnormality Otherwise a normal ECG Electronically signed by : Tate Metzger, 12/18/2019 17:49:01
[2019-12-18 14:04] LABS: Chloride 97 mmol/L (98-107); Potassium 4.6 mmoL/L (3.5-5.1); Sodium 132 mmol/L (136-145)
[2019-12-18 14:07] LABS: Albumin Level 4.9 g/dl (3.5-5.0); Albumin/Globulin Ratio 1.9 (1.1-1.8); Alkaline Phosphatase 76 U/L (38-126); Anion Gap 12.6 mEq/L (5-15); Blood Urea Nitrogen 11 mg/dl (7-17); Carbon Dioxide 27 mmol/L (22.0-30.0); Estimated Glomerular Filt Rate 56 ml/min (>60); GFR (African American) 68 ML/MIN (>60); Globulin 2.6 g/dL (1.3-3.2); Total Protein,Serum 7.5 g/dl (6.3-8.2)
[2019-12-18 14:08] LABS: Alanine Aminotransferase 21 U/L (12-78); Calcium 9.7 mg/dl (8.4-10.2); Glucose 103 mg/dl (74-100)
[2019-12-18 14:09] LABS: Aspartate Amino Transferase 27 U/L (14-36)
[2019-12-18 16:04] LABS: Coronavirus 19 IgG Antibody Negative (Negative); Coronavirus 19 IgM Antibody Negative (Negative)
== END ==
PROVIDERS: Visit Provider Orthopaedic Surgery
DX: Z01.818 Encounter for other preprocedural examination (principal); S62.610B Displaced fracture of proximal phalanx of right index finger, initial encounter for open fracture
CPT/HCPCS: 36415; 71046; 80053; 85025; 86328; 93005

== ENCOUNTER 2019-12-20 11:51 | Day surgery (SDC) | payer MEDICARE, SELFPAY ==
[2019-12-18 12:50] VITALS: BMI 27.6
[2019-12-20] VITALS (8 sets, daily range): BP systolic 108–136; BP diastolic 63–75; PULSE 73–84; RESP 14–20; TEMP 36.4–36.6; O2SAT 93–98
--- NOTE | 2019-12-20 13:37 | P.PN_ITS ---
[facility] Anesthesia Checklist - Patient Identification Patient Identification: Arm Band, Verbal (Name & ) - Structural Data Admitted From: Home Planned Operative Procedure/s: orif 4th finger Verified Documents: History and Physical - NPO Status Verified Time NPO: 00:00 - Chart Verification Results Verified: CBC, BMP - Additional verifications Patient : No Anesthesia Reactions: No Hx Blood Transfusions: No Blood Transfusion Reaction: No Cephalosporin Allergy: No Previous Colonoscopy: Yes - Cardiovascular Assessment Heart Sounds: S1 & S2 Pulse Strength: Baseline Pulse Rhythm: Regular Peripheral Edema: No - Airway Assessment C-Spine Mobility Assessed: Yes TMJ Mobility Assessed: Yes Dentition: Dentures-good fit - Neurological Assessment Level of Consciousness: Awake, Alert, Appropriate Hx Seizures: No Numbness or tingling in extremities: No - Anesthesia Plan Anesthesia Risk discussed: Yes Anesthesia Plan: Verified ASA Class: II Anesthesia Type: General [facility] History I have reviewed the patient's past medical history: Yes Medical History: Reports:: Cancer (skin), Gastroesophageal Reflux Disease(GERD), Hyperlipidemia, Hypertension Denies:: Diabetes Mellitus Type 1, Diabetes Mellitus Type 2, Internal Pacemaker, Lung Disease, MRSA, Seizures *Have you ever received a pneumonia vaccine?: Yes *Have you received a flu vaccine this season?: Yes Other Medical History: Reports: Anemia, Arthritis, Hypothyroidism. Denies: Blood Transfusion Reaction Anesthesia experience/problems:: none Other Surgeries: Yes: Cardiac Catheterization, Colonoscopy, Dilation and Curettage, EGD, Tubal Ligation, Other (skin graft L leg). No: Pacemaker Amputation: No Fractures: No - *Social History Educational Level: Attended College Smoking Status: Current every day smoker Tobacco Type: cigarettes # Packs/Day (cigarettes): 1 Alcohol Intake: current Alcohol Intake Frequency:: a few times a week Substance Use Type: denies use *Occupational Status:: other Housing: house Household Members: spouse *Travel in the last 8 weeks: None Family Hx:: Cancer, Coronary Artery Disease, Diabetes, Heart Attack, Hyperlipidemia, Hypertension
--- NOTE | 2019-12-20 14:37 | XR_ITS ---
PROCEDURE: XR HAND RT MIN 3V CLINICAL INDICATION: IN OR COMPARISON: XR HAND RT MIN 3V from 12/17/2019 FINDINGS: Multiple intraoperative radiographs demonstrate 2 pins traversing a reduced fracture of the proximal metaphysis of the proximal phalanx of the 4th digit. IMPRESSION: As above Dictated by: Josue Rosario 12/20/2019 16:12 Electronically signed by Josue Rosario in [place] 12/20/2019 16:12
--- NOTE | 2019-12-20 15:44 | HMH.ANESI ---
[facility] Anesthesia Record Part I Intake, IV Amount: 1,500 Estimated blood loss (mL): 0 Urine output (mL): 0 Blood Pressure: 110/70 SaO2: 98 Pulse Rate: 84 Respiratory Rate: 14 Temperature: 97.7 F Patient is:: Awake, Stable Stable to PACU at:: 15:40
--- NOTE | 2019-12-20 16:27 | HMH.OPNOTE ---
Date of procedure: 12/20/19 Pre-op Diagnosis:: 1. Fracture proximal phalanx right fourth digit 2. Healing puncture wound, right hand Post-op Diagnosis:: Same Procedure performed:: Close reduction and percutaneous pinning for fracture proximal phalanx fourth digit, right hand Surgeon:: Adonis Rocha MD TAILMAN:: Anil Moon Anesthesia: GETA Estimated blood loss (mL): 1 Clinical Note:: Patient is a 64-year-old [id number] female, who sustained a displaced fracture shaft of the proximal phalanx of the right fourth finger. She sustained the injury when she fell of the bed about 5 days ago. She also sustained a puncture wound at the level of the fourth metacarpophalangeal joint. She presented late to the primary care physician who referred her to my office for further management. Following evaluation in the office, I have prescribed oral antibiotics. Small puncture wound was healing well and no signs of infection were noted. Given the displacement at the fracture site and slight rotational malalignment of the finger, I have recommended surgical remediation in the form of close reduction and internal fixation or open reduction internal fixation as appropriate. Following a detailed discussion about the management options including both nonsurgical and surgical with the patient, she opted for a closed or open reduction and percutaneous pinning/internal fixation as appropriate. Please refer to my office note for full details. Operative findings:: Closed, partially displaced and angulated proximal phalanx fracture of RIGHT fourth digit with mild rotational malalignment of the finger. The fracture was easily reducible and the finger alignment corrected by closed manipulation. The puncture wound over the base of the fourth MCP joint is healing well and no obvious signs of infection noted. Operative note:: On the day of the procedure the patient and and her were met in the preoperative area and positively identified. The site was appropriately marked. A physical examination was performed and documented. I have again discussed the management options including both nonsurgical and surgical. I have discussed the proposed surgery, risks and benefits and alternatives in detail. She wished to proceed with surgical remediation as planned. A physical examination was performed the chart was updated. Patient understood the risks, agreed to proceed with surgery and no guarantees or assurances were given or implied. The patient was brought to the operating room and placed supine on the operating table. The RIGHT upper extremity was placed on a hand table. All the bony prominences were appropriately padded. A general anesthesia was administered by the beverage sales consultant. Administration of preoperative prophylactic antibiotics was confirmed. A well-padded tourniquet cuff was placed over the RIGHT upper arm. The RIGHT hand was prepped and draped in the usual sterile fashion. A preprocedure timeout was performed as per protocol. The limb was exsanguinated with Esmarch bandage and tourniquet cuff inflated to 250 mmHg. Please refer to the nursing notes for the tourniquet time. An examination under anesthesia the puncture wound over the fourth MCP joint was noted to be healing well without any evidence of infection. Then under fluoroscopy the fracture was reduced by closed manipulation and the finger rotation was corrected. The fracture was noted to be reducible in a stable fashion. I then proceeded to stabilize a fracture with K wires. The proposed K wire insertion site was marked on the skin and a small skin incision was over the ulnar aspect of the proximal phalanx medial condyle for a retrograde percutaneous K wire insertion. Then using a 0.45 K wire an entry point was made over the medial condyle of the proximal phalanx under fluoroscopic guidance. Then the K wire was driven through the proximal phalanx across the fracture site to engage the proximal lateral cortex at
--- NOTE | 2019-12-23 10:53 | SUR.OPER ---
0.45 kwires x2 used for right fourth proximal phalanx fracture pinning
[2019-12-25 09:42] VITALS: BP 115/63; PULSE 78; TEMP 36.6
--- NOTE | 2019-12-25 09:42 | HMH.ANESII ---
[facility] Anesthesia Record Part II Discharge Time: 16:10 Destination: [facility] PACU nurse assessment reviewed?: Yes Patient Condition:: Good Anesthesia Complications:: None Swallowing reflex intact?: Yes Cyanosis?: No Blood Pressure: 115/63 Pulse Rate: 78 Temperature: 97.8 F Mental Status: Alert & Oriented Pain level:: 3 Nausea and/or vomitting:: None Intake, IV Amount: 500
== END 2019-12-20 16:42 | disposition home or self-care (01) ==
LOC: OR 11:53
PROVIDERS: PCP Nurse Practitioner Family; Visit Provider Orthopaedic Surgery
DX: S62.614A Displaced fracture of proximal phalanx of right ring finger, initial encounter for closed fracture (principal); E03.9 Hypothyroidism, unspecified; W06.XXXA Fall from bed, initial encounter; Y92.013 Bedroom of single-family (private) house as the place of occurrence of the external cause; I10 Essential (primary) hypertension
CPT/HCPCS: 26727; 73130; 76000; 96374; J2405

== ENCOUNTER → 2019-12-25 13:07 | Outpatient (CLI) | payer MEDICARE, SELFPAY ==
--- NOTE | 2019-12-25 13:14 | XR_ITS ---
PROCEDURE: XR HAND RT MIN 3V CLINICAL INDICATION: sp CRPP RT 4th MC, dos 12/20/19 Follow-up pinning metacarpal fracture COMPARISON: XR HAND RT MIN 3V from 12/17/2019 XR HAND RT MIN 3V from 12/20/2019 FINDINGS: Two crossing pins are present along the proximal aspect of 4th metacarpal. There is good alignment of the fracture fragments. There is a medial splint in place. IMPRESSION: Good alignment status post pinning 4th metacarpal fracture Dictated by: Jesus Do MD 12/25/2019 13:40 Electronically signed by Jesus Do MD in [place] 12/25/2019 13:40
== END ==
PROVIDERS: PCP Internal Medicine Adolescent Medicine; Visit Provider Orthopaedic Surgery
DX: Z09 Encounter for follow-up examination after completed treatment for conditions other than malignant neoplasm (principal)
CPT/HCPCS: 73130

== ENCOUNTER → 2020-01-07 09:51 | Outpatient (CLI) | payer MEDICARE, SELFPAY ==
--- NOTE | 2020-01-07 09:53 | XR_ITS ---
PROCEDURE: XR HAND RT MIN 3V CLINICAL INDICATION: SP crpp RT 4th digit, out of splint, dos 12/19 Follow-up surgery COMPARISON: XR HAND RT MIN 3V from 12/17/2019 XR HAND RT MIN 3V from 12/20/2019 XR HAND RT MIN 3V from 12/25/2019 FINDINGS: Status post pinning of the proximal phalanx of the 4th digit stabilizing the proximal phalangeal fracture. There are crossing pins in place with good alignment. Fracture line is somewhat less apparent. The splint has been removed. There are mild degenerative changes the DIP joints and the 1st metacarpal-carpal joint. Other findings:None. IMPRESSION: Good alignment status post closed reduction proximal phalanx fracture 4th digit Dictated by: Jesus Do MD 01/07/2020 15:38 Electronically signed by Jesus Do MD in [place] 01/07/2020 15:38
== END ==
PROVIDERS: PCP Internal Medicine Adolescent Medicine; Visit Provider Orthopaedic Surgery
DX: Z09 Encounter for follow-up examination after completed treatment for conditions other than malignant neoplasm; S62.614A Displaced fracture of proximal phalanx of right ring finger, initial encounter for closed fracture
CPT/HCPCS: 73130

== ENCOUNTER → 2020-01-21 09:05 | Outpatient (CLI) | payer MEDICARE, SELFPAY ==
--- NOTE | 2020-01-21 09:17 | XR_ITS ---
PROCEDURE: XR HAND RT MIN 3V CLINICAL INDICATION: sp right 4th MC closed reduction pinning Follow-up closed pinning, fracture COMPARISON: XR HAND RT MIN 3V from 01/07/2020 FINDINGS: There has been interval removal of the 2 crossing pins with good alignment of the proximal phalanx fracture of the 4th digit. Fracture line is still visible. IMPRESSION: Good alignment status post pin removal 4th proximal phalanx fracture Dictated by: Jesus Do MD 01/22/2020 07:29 Electronically signed by Jesus Do MD in [place] 01/22/2020 07:29
== END ==
PROVIDERS: PCP Internal Medicine Adolescent Medicine; Visit Provider Orthopaedic Surgery
DX: Z09 Encounter for follow-up examination after completed treatment for conditions other than malignant neoplasm (principal); M25.531 Pain in right wrist
CPT/HCPCS: 73130

== ENCOUNTER 2020-02-20 10:00 | Outpatient (RCR) | payer MEDICARE, SELFPAY | END 2020-02-25 12:16 | disposition home or self-care (01) | LOC: OT 10:00 | PROVIDERS: PCP Internal Medicine Adolescent Medicine; Visit Provider Orthopaedic Surgery | DX: S62.614A Displaced fracture of proximal phalanx of right ring finger, initial encounter for closed fracture (principal) | CPT/HCPCS: 97010; 97018; 97035; 97110; 97140; 97165; 97530 ==

== ENCOUNTER → 2020-02-21 12:51 | Outpatient (CLI) | payer MEDICARE, SELFPAY ==
--- NOTE | 2020-02-21 13:01 | XR_ITS ---
PROCEDURE: XR HAND RT MIN 3V CLINICAL INDICATION: RT 4th MC pinning, sx 12/20/[address] Rocha Follow-up fracture COMPARISON: CR XR HAND RT MIN 3V from 12/20/2019 CR XR HAND RT MIN 3V from 12/25/2019 DX XR HAND RT MIN 3V from 01/07/2020 CR XR HAND RT MIN 3V from 01/21/2020 FINDINGS: There is a nondisplaced transverse fracture involving the proximal aspect of the proximal phalanx of the 4th digit which is not significantly changed from 01/21/2020. Lucencies are noted within the proximal phalanx from prior pin placement. The joint spaces are well-preserved. No significant degenerative/arthritic changes. No erosive changes evident. Other findings:None. IMPRESSION: No change nondisplaced transverse fracture proximal phalanx 4th digit Dictated by: Jesus Do MD 02/21/2020 13:46 Jesus Do MD in [place] 02/21/2020 13:46
== END ==
PROVIDERS: PCP Internal Medicine Adolescent Medicine; Visit Provider Orthopaedic Surgery
DX: Z09 Encounter for follow-up examination after completed treatment for conditions other than malignant neoplasm (principal); S62.619B Displaced fracture of proximal phalanx of unspecified finger, initial encounter for open fracture
CPT/HCPCS: 73130

== ENCOUNTER 2020-03-10 10:00 | Outpatient (RCR) | payer MEDICARE, SELFPAY | END 2020-03-23 16:24 | disposition home or self-care (01) | LOC: PT.CARL 10:00 | PROVIDERS: PCP Internal Medicine Adolescent Medicine; Visit Provider Nurse Practitioner Family | DX: M25.552 Pain in left hip (principal) | CPT/HCPCS: 97110; 97140; 97163 ==

== ENCOUNTER → 2020-08-22 09:53 | Outpatient (CLI) | payer MEDICARE, SELFPAY ==
[2020-08-22 12:33] LABS: Coronavirus 19 IgG Antibody Positive (Negative); Coronavirus 19 IgM Antibody Negative (Negative)
== END ==
PROVIDERS: Visit Provider Internal Medicine Gastroenterology
DX: Z01.812 Encounter for preprocedural laboratory examination (principal); Z20.822 Contact with and (suspected) exposure to COVID-19; Z13.810 Encounter for screening for upper gastrointestinal disorder; Z12.11 Encounter for screening for malignant neoplasm of colon; Z86.010 Personal history of colon polyps
CPT/HCPCS: 36415; 86328

== ENCOUNTER 2020-08-24 10:22 | Day surgery (SDC) | payer MEDICARE, SELFPAY ==
[2020-08-18 15:42] VITALS: BMI 26.9
[2020-08-24 11:06] VITALS: BP 131/94; PULSE 73; RESP 18; TEMP 36.2; O2SAT 96
[2020-08-24 11:42] VITALS: O2SAT 97
--- NOTE | 2020-08-24 11:54 | P.PN_ITS ---
[facility] Anesthesia Checklist - Patient Identification Patient Identification: Arm Band - Structural Data Admitted From: Home Planned Operative Procedure/s: egd/colonoscopy Consent for Planned Operative Procedure(s) Verified: Yes Verified Documents: Surgical Consent, History and Physical - NPO Status Verified Time NPO: 00:00 - Additional verifications Anesthesia Reactions: No Hx Blood Transfusions: No Blood Transfusion Reaction: No - Airway Assessment C-Spine Mobility Assessed: Yes (mp2) TMJ Mobility Assessed: Yes Dentition: Poor Dentition - Neurological Assessment Level of Consciousness: Awake, Alert - Anesthesia Plan Anesthesia Risk discussed: Yes Anesthesia Plan: Verified ASA Class: II Anesthesia Type: MAC [facility] History I have reviewed the patient's past medical history: Yes Medical History: Reports:: Anxiety, Cancer, Gastroesophageal Reflux Disease(GERD), Hyperlipidemia, Hypertension Denies:: Diabetes Mellitus Type 1, Diabetes Mellitus Type 2, Internal Pacemak er, Lung Disease, MRSA, Seizures *Have you ever received a pneumonia vaccine?: No *Have you received a flu vaccine this season?: Yes Other Medical History: Reports: Anemia, Arthritis, Hypothyroidism. Denies: Blood Transfusion Reaction Anesthesia experience/problems:: nac Other Surgeries: Yes: Cardiac Catheterization, Colonoscopy, Dilation and Curettage, EGD, Tubal Ligation, Other (skin graft L leg). No: Pacemaker Amputation: No Fractures: No - *Social History Last grade of school completed: Some college Smoking Status: Current every day smoker Tobacco Type: cigarettes # Packs/Day (cigarettes): 1 Alcohol Intake: never Alcohol Intake Frequency:: a few times a week Substance Use Type: denies use *Occupational Status:: disabled Housing: house Household Members: spouse *Travel in the last 8 weeks: None Family Hx:: Cancer, Coronary Artery Disease, Diabetes, Heart Attack, Hyperlipidemia, Hypertension
--- NOTE | 2020-08-24 12:04 | P.PCN_ITS ---
[facility] Procedure Note Procedure Note:: Upper Endoscopy Procedure Report: Esophagogastroduodenoscopy with cold biopsies and TTS balloon dilation Endoscopost: Jordan Diamond II, MD Referring Physician: Sixto Savage M.D. Date of Procedure: August 24, 2020 Equipment: Olympus GIF 180 standard upper endoscope Sedation: MAC sedation Indications: Mrs. Huggins is a 65-year-old female who is here for diagnostic upper endoscopy. The patient has had chronic heartburn and reflux. She does take Rolaids when necessary. She did have a reaction previously to omeprazole. She does report some bloating, belching and retrosternal chest pressure and pain. She did have a cardiac catheterization showing no evidence of coronary artery disease. She reports no epigastric abdominal pain or nausea. She reports some mild early satiety. She has regular bowel function. Procedure: Prior to the procedure, a history and physical exam was performed, and patient's medications and allergies were reviewed. The risks, benefits and alternatives of the sedation and procedure were discussed with the patient. All questions were answered and informed consent was obtained. The patient was brought to the procedure room. Patient identification and proposed procedure were verified by the physician and the nurse. The patient was placed in a left lateral decubitus position and the scope was passed under direct vision. Throughout the procedure, the patient's blood pressure, pulse, and oxygen saturations were monitored continuously. The upper GI endoscopy was accomplished without difficulty. The patient tolerated the procedure well. Findings: The scope was passed directly into the upper esophagus and advanced to the third portion of the duodenum. The post bulbar duodenum and duodenal bulb were normal with normal mucosa and conniventes. Cold biopsies were taken from the post bulbar duodenum and duodenal bulb to rule out celiac disease. The scope was withdrawn through a normal duodenal bulb and pylorus into the stomach. There was some mild linear reactive gastropathy of the antrum and distal body of the stomach. The remainder of the body and fundus of the stomach were grossly normal. Upon retroflexion there was no hiatal hernia. 2 biopsies were taken in the antrum and along the lesser curvature for histology to rule out gastritis and/or H pylori. The scope was then withdrawn into the esophagus. There was no evidence of reflux esophagitis or Beckwith's. Biopsies were taken at the GE junction to rule out intestinal metaplasia or signs of reflux. There was a serrated Z-line. There were tertiary contractions and evidence of mild esophageal dysmotility. The entire esophagus was dilated to 60 Arabic/20 mm with a TTS hydrostatic balloon. There was some resistance at the cricopharyngeus. The remainder of the esophageal mucosa was normal. Impression: 1. Cricopharyngeal spasm status post dilation to 20 mm 2. Nonerosive GERD with mild esophageal dysmotility 3. Linear reactive gastropathy Plan: I will follow-up the biopsies. I do feel the patient has some functional GERD. We will discuss additional dietary measures and treatment options. I will proceed with surveillance colonoscopy.
--- NOTE | 2020-08-24 12:30 | P.PCN_ITS ---
[facility] Procedure Note Procedure Note:: Colonoscopy Procedure Report: Colonoscopy with cold snare polypectomy Endoscopist: Jordan Diamond II, MD Referring physician: Sixto Savage M.D. Date of Procedure: August 24, 2020 Equipment: Olympus 180 variable stiffness pediatric colonoscope Sedation: MAC sedation Indication: Mrs. Huggins is a 65-year-old female who is here for follow-up screening/surveillance colonoscopy. The patient did have a colonoscopy in February 2016 and had 3 colon polyps (tubular adenoma x1/hyperplastic polyps x2) removed (Dr. Brittney Goss in [place]). The patient reports no abdominal pain, weight loss, change in her bowel habits or rectal bleeding. She does have some bloating. She does state that her maternal aunt had colon cancer in her 70s. Procedure: Prior to the procedure, a history and physical exam was performed, and patient's medications and allergies were reviewed. The risks, benefits and alternatives of the sedation and procedure were discussed with the patient. All questions were answered and informed consent was obtained. The patient was brought to the procedure room. Patient identification and proposed procedure were verified by the physician and the nurse. The patient was placed in a left lateral decubitus position and the scope was passed under direct vision. Throughout the procedure, the patient's blood pressure, pulse, and oxygen saturations were monitored continuously. The colonoscopy was accomplished without difficulty. The patient tolerated the procedure well. Findings: On digital rectal examination there was normal rectal tone. There were no external hemorrhoids. The colonoscope was introduced through the anal canal to the rectum and advanced to the cecum. The ileocecal valve and appendiceal orifice were identified. The scope was advanced a short distance into the ileum which appeared grossly normal. The scope was then withdrawn into the colon. There were a total of 6 colon polyps (ascending x2 (3 and 4 mm), sigmoid x3 (4, 4 and 5 mm) and rectum x1 (4 mm)). These were all removed via cold snare polypectomy. There was some heme at the rectal polypectomy site that was near the pectinate line and a single Endo Clip was placed to provide hemostasis. The remainder of the colonic mucosa was normal. The rectum itself was normal. Upon retroflexion within the rectum there were grade 1 internal hemorrhoids. The preparation was excellent throughout with [place] Preparation Score of 9. The cecal time was 12 minutes. Impression: 1. Diminutive colonic polyps x6 2. Grade 1 internal hemorrhoids Plan: I will follow up the polyp pathology and recommend repeat colonoscopy again in 3-5 years based upon the polyp histology. I would encourage bulking fiber supplementation on a long-term daily maintenance basis.
[2020-08-24 12:31] VITALS: BP 110/69; PULSE 69; RESP 12; TEMP 36.4; O2SAT 94
[2020-08-24 12:41] VITALS: BP 122/68; PULSE 67; RESP 16; O2SAT 97
[2020-08-24 12:51] VITALS: BP 121/71; PULSE 66; RESP 16; O2SAT 97
[2020-08-24 13:01] VITALS: BP 139/74; PULSE 60; RESP 16; TEMP 36.4; O2SAT 98
== END 2020-08-24 13:07 | disposition home or self-care (01) ==
LOC: OUTP 10:24
PROVIDERS: PCP Internal Medicine Adolescent Medicine; Visit Provider Internal Medicine Gastroenterology
PROC: 0DJ08ZZ Inspection of Upper Intestinal Tract, Via Natural or Artificial Opening Endoscopic (ICD-10-PCS; CPT 43235; principal; 2020-08-24 11:30)
DX: Z12.11 Encounter for screening for malignant neoplasm of colon (principal); K63.5 Polyp of colon; K64.0 First degree hemorrhoids; K62.1 Rectal polyp; Z86.010 Personal history of colon polyps; J39.2 Other diseases of pharynx; K21.9 Gastro-esophageal reflux disease without esophagitis; K22.4 Dyskinesia of esophagus; K31.9 Disease of stomach and duodenum, unspecified; I10 Essential (primary) hypertension; E78.5 Hyperlipidemia, unspecified; Z85.9 Personal history of malignant neoplasm, unspecified
CPT/HCPCS: 43239; 43249; 45385; 88305; 88313; C1726

== ENCOUNTER → 2020-09-01 09:30 | Outpatient (POV) | payer MEDICARE, SELFPAY | PROVIDERS: Visit Provider Dermatology | DX: Z00.00 Encounter for general adult medical examination without abnormal findings (principal) ==

== ENCOUNTER → 2020-11-25 08:13 | Outpatient (CLI) | payer MEDICARE, SELFPAY ==
[2020-11-25 14:46] LABS: Basophils # 0.1 K/mm3 (0-0.2); Basophils % 1.1 % (0.1-2.0); Eosinophils # 0.5 K/mm3 (0.0-0.4); Eosinophils % 7.1 % (0.1-12.0); Hematocrit 35.1 % (37.0-47.0); Hemoglobin 12.2 g/dL (12.2-16.2); Lymphocytes # 2.3 K/mm3 (0.7-4.5); Lymphocytes % 34.7 % (10-50); Mean Corpuscular HGB Conc 34.7 g/dL (31.8-35.4); Mean Corpuscular Hemoglobin 32.5 pg (27.0-31.2); Mean Corpuscular Volume 93.8 fl (81-99); Mean Platelet Volume 9.3 fl (7.4-10.4); Monocytes # 0.5 K/mm3 (0.1-1.0); Neutrophils # 3.3 K/mm3 (1.8-7.8); Platelet Count 265 K/mm3 (142-424); Red Blood Count 3.74 M/mm3 (4.20-5.40); Red Cell Distribution Width 12.9 % (11.5-17.5); White Blood Count 6.7 K/mm3 (4.8-10.8)
[2020-11-25 15:17] LABS: Alanine Aminotransferase 16 U/L (12-78); Albumin Level 4.6 g/dl (3.5-5.0); Albumin/Globulin Ratio 1.9 (1.1-1.8); Alkaline Phosphatase 77 U/L (38-126); Anion Gap 14.3 mEq/L (5-15); Aspartate Amino Transferase 25 U/L (14-36); Bilirubin,Total 0.8 mg/dl (0.2-1.3); Blood Urea Nitrogen 18 mg/dl (7-17); Calcium 8.8 mg/dl (8.4-10.2); Carbon Dioxide 23 mmol/L (22.0-30.0); Chloride 105 mmol/L (98-107); Cholesterol 135 mg/dl (140-200); Estimated Glomerular Filt Rate 50 ml/min (>60); GFR (African American) 61 ML/MIN (>60); Globulin 2.4 g/dL (1.3-3.2); Glucose 97 mg/dl (74-100); HDL Cholesterol 45 mg/dl (40-60); Potassium 4.3 mmoL/L (3.5-5.1); Sodium 138 mmol/L (136-145); Triglycerides 127 mg/dl (30-150); VLDL Cholesterol 25 mg/dL (0-40)
[2020-11-25 15:29] LABS: Direct LDL Cholesterol 57.12 mg/dL (100-129)
[2020-11-25 15:34] LABS: 25-OH Vitamin D, Total 59.2 ng/mL (30-100)
[2020-11-25 15:47] LABS: Thyroid Stimulating Hormone 2.67 uIU/mL (0.465-4.68)
== END ==
PROVIDERS: Visit Provider Nurse Practitioner Family
DX: E78.5 Hyperlipidemia, unspecified (principal); E03.9 Hypothyroidism, unspecified; K21.9 Gastro-esophageal reflux disease without esophagitis; M85.80 Other specified disorders of bone density and structure, unspecified site
CPT/HCPCS: 36415; 80053; 80061; 82306; 84443; 85025

== ENCOUNTER → 2021-03-23 12:40 | Outpatient (CLI) | payer MEDICARE, SELFPAY ==
--- NOTE | 2021-03-23 12:46 | MM_ITS ---
PROCEDURE: MM DIG SCREENING MAMM BI W/CAD Digital Breast Tomosynthesis Included CLINICAL INDICATION: SCREENING There is a history of breast cancer in the patient's maternal cousin and paternal aunt. COMPARISON: MG DMSB DIG MAMM-SCREEN SANG W/CAD from 01/25/2017 [facility] MM Dig screening mamm BI w/CAD from 09/27/[address] lung screening from 01/25/2019 MG MM DIG SCREENING MAMM BI W/CAD from 11/26/2019 TECHNIQUE: Standard CC and MLO images and 3D Tomosynthesis was obtained. R2 CAD reviewed. FINDINGS: Breasts are composed primarily of fat with scattered fibroglandular densities throughout each breast. There are 2 mole markers left breast, single mole marker right breast. There are couple of benign-appearing microcalcifications left breast. There is no suspicious lesion in either breast no suspicious microcalcifications. IMPRESSION: Fatty type breast parenchyma with no suspicious lesions seen BI-RAD Category: 2 Benign Finding(s) FOLLOW-UP: 1YR 1 Year Follow-up (A letter has been sent to the patient regarding results of the study.) Dictated by: Dr. Wang Ayers MD 04/01/2021 14:43 Dr. Wang Ayers MD in [place] 04/01/2021 14:43
== END ==
PROVIDERS: PCP Internal Medicine Adolescent Medicine; Visit Provider Internal Medicine Adolescent Medicine
DX: Z12.31 Encounter for screening mammogram for malignant neoplasm of breast (principal)
CPT/HCPCS: 77063; 77067

== ENCOUNTER → 2021-05-04 14:41 | Outpatient (CLI) | payer MEDICARE, SELFPAY ==
--- NOTE | 2021-05-04 14:46 | CT_ITS ---
PROCEDURE: CT LUNG SCREENING CLINICAL INDICATION: HX OF NICOTINE DEPENDENCE COMPARISON: CT CT LUNG SCREENING from 11/26/2019 TECHNIQUE: The exam was performed on a GE Light Speed [address] scanner using 2.90 mGy CTDI. A low dose helical CT CHEST was performed on a multi-detector scanner. All CT scans at the facility use one or more dose reduction, viz: automated exposure control, ma/kV adjustment per patient size (including targeted exams where dose is matched to indication, i.e. head), or iterative reconstruction technique. The LDCT was performed in a facility that meets the criteria for the screening program. Data regarding this exam was submitted to ACR which is an approved registry. The order for this exam indicates that it came as a result of a lung cancer screening counseling shard decision-making visit that included all the elements required of such a visit including smoking cessation. The radiologist interpreting this exam meets the CMS criteria for the LDCT lung cancer screening program. The exam is reported using the Lung-RADS classification scale and reported to the ACR registry. NOTE: This study was performed for the specific purposes of lung cancer screening and is not an alternative to diagnostic chest CT. RADIATION DOSE: CTDI vol(CT dose Index-volume) = 2.90mG DLP (Dose Length Product) = 99.77 mGcm FINDINGS: COPD changes with evidence of old granulomatous disease with scattered areas of scarring. No suspicious nodules. Scattered small parenchymal opacities unchanged OTHER FINDINGS: Mild coronary artery calcification. Calcification within the right adrenal unchanged. IMPRESSION: Lung-RADS Category 2 Benign Appearance or Behavior Follow-up: Continue annual screening with LDCT in 12 months Dictated by: Jesus Do MD 05/15/2021 05:45 Jesus Do MD in [place] 05/15/2021 05:45
== END ==
PROVIDERS: PCP Internal Medicine Adolescent Medicine; Visit Provider Nurse Practitioner Family
DX: Z87.891 Personal history of nicotine dependence (principal); Z12.2 Encounter for screening for malignant neoplasm of respiratory organs
CPT/HCPCS: 71271

== ENCOUNTER → 2022-03-30 10:44 | Outpatient (CLI) | payer MEDICARE, SELFPAY ==
--- NOTE | 2022-03-30 10:56 | MM_ITS ---
PROCEDURE INFORMATION: Exam: MG Bilateral Screening 3D Mammography Exam date and time: 03/30/2022 10:50 AM Age: 66 years old Clinical indication: Screening examination TECHNIQUE: Imaging protocol: Bilateral Screening tomosynthesis and 2D mammography including computer-aided detection (CAD) when performed. COMPARISON: 1. MG MM DIG SCREENING MAMM BI W/CAD 03/23/2021 1:01 PM 2. MG MM DIG SCREENING MAMM BI W/CAD 11/26/2019 8:18 AM FINDINGS: MAMMOGRAPHY: Breast composition: There are scattered areas of fibroglandular density. Mass: None. Architectural distortion: None. Calcifications: No suspicious calcifications. Asymmetric density: None. Skin thickening: None. Axillary adenopathy: None. IMPRESSION: No mammographic evidence of malignancy. Annual screening is recommended unless otherwise clinically indicated. ASSESSMENT: BI-RADS Category 1: Negative
== END ==
PROVIDERS: PCP Internal Medicine Adolescent Medicine; Visit Provider Nurse Practitioner Family
DX: Z12.31 Encounter for screening mammogram for malignant neoplasm of breast (principal)
CPT/HCPCS: 77063; 77067

== ENCOUNTER → 2023-04-13 15:15 | Outpatient (CLI) | payer MEDICARE, SELFPAY ==
--- NOTE | 2023-04-13 15:31 | MM_ITS ---
PROCEDURE INFORMATION: Exam: MG Bilateral Screening 3D Mammography Exam date and time: 04/13/2023 3:19 PM Age: 67 years old Clinical indication: Screening examination; Family history of breast cancer in aunt and other: Mat cousin TECHNIQUE: Imaging protocol: Bilateral Screening tomosynthesis and 2D mammography including computer-aided detection (CAD) when performed. COMPARISON: 1. MG MM DIG SCREENING MAMM BI W/CAD 03/30/2022 10:50 AM 2. MG MM DIG SCREENING MAMM BI W/CAD 03/23/2021 1:01 PM 3. MG MM DIG SCREENING MAMM BI W/CAD 11/26/2019 8:18 AM 4. MG SCBI MM Dig screening mamm BI w/CAD 09/27/2018 10:13 AM FINDINGS: MAMMOGRAPHY: Breast composition: There are scattered areas of fibroglandular density. Mass: None. Architectural distortion: None. Calcifications: Questionable grouping of calcifications in the right central breast, along the retroareolar line, middle to posterior 3rd, best seen in the craniocaudad projection, more likely project in the upper breast in the MLO. These are very superficial and more likely related to the skin. Asymmetric density: None. Skin thickening: None. Axillary adenopathy: None. IMPRESSION: Patient will be recalled for right diagnostic mammography, for questionable right breast calcifications. These are very superficial and may be related to the skin, suggest beginning with tangential views and if not related to the skin than magnification in CC as well as full field lateral projection. ASSESSMENT: BI-RADS Category 0: Incomplete- Need Additional Imaging Evaluation and/or Prior Mammograms for Comparison
== END ==
PROVIDERS: PCP Internal Medicine Adolescent Medicine; Visit Provider Nurse Practitioner Family
DX: Z12.31 Encounter for screening mammogram for malignant neoplasm of breast (principal)
CPT/HCPCS: 77063; 77067

== ENCOUNTER → 2023-05-05 14:24 | Outpatient (CLI) | payer MEDICARE, SELFPAY ==
--- NOTE | 2023-05-05 14:31 | MM_ITS ---
PROCEDURE INFORMATION: Exam: MG Right Diagnostic Breast Tomosynthesis Exam date and time: 05/05/2023 2:37 PM Age: 67 years old Clinical indication: Recall on the basis of screening mammogram 04/12/2023 for further evaluation of questionable calcifications in the right breast. TECHNIQUE: Imaging protocol: Right Diagnostic tomosynthesis and 2D mammography including computer-aided detection (CAD) when performed. Unilateral or bilateral exam. COMPARISON: 1. MG MM DIG SCREENING MAMM BI W/CAD 04/13/2023 3:19 PM 2. MG MM DIG SCREENING MAMM BI W/CAD 03/30/2022 10:50 AM 3. MG MM DIG SCREENING MAMM BI W/CAD 03/23/2021 1:01 PM 4. MG MM DIG SCREENING MAMM BI W/CAD 11/26/2019 8:18 AM FINDINGS: MAMMOGRAPHY: Magnification views shows 3 punctate calcifications in the central breast middle to posterior 3rd grouping possibly similar to 03/23/2021 MLO view. IMPRESSION: Probably benign calcifications, suggest six-month follow-up right diagnostic mammography unless otherwise clinically indicated. ASSESSMENT: BI-RADS Category 3: Probably benign
== END ==
LOC: RAD 14:25
PROVIDERS: PCP Internal Medicine Adolescent Medicine; Visit Provider Internal Medicine Adolescent Medicine
DX: R92.8 Other abnormal and inconclusive findings on diagnostic imaging of breast (principal)
CPT/HCPCS: 77061; 77065; G0279

== ENCOUNTER 2024-01-04 09:39 | Outpatient (CLI) | payer MEDICARE, SELFPAY ==
--- NOTE | 2024-01-04 09:54 | XR_ITS ---
FINAL REPORT TECHNIQUE: Bone mineral density was calculated of the lumbar spine and hip. CLINICAL HISTORY: POSTMENOPAUSAL COMPARISON: None FINDINGS: Using L1-4, the bone mineral density of the spine is 0.907 g/cm2, corresponding to T-score of -1.3. Using the left hip, the bone mineral density of the femoral neck is 0.699 g/cm2, corresponding to a T-score of -1.3. Using the right hip, the bone mineral density of the femoral neck measures 0.717 g/cm?, corresponding to a T-score of -1.2. NOTE: T-score: Standard deviation compared with peak bone mass of young adult mean. *Following the recommendations of the International Society of Bone densitometry, classification of hip BMD is based on the lower of two T-scores; total hip or femoral neck. IMPRESSION: Diminished bone mineral density of the lumbar spine and bilateral hips consistent with low bone density. Reviewed, Interpreted and Dictated by Shane Edwards III, MD Transcribed by Nona Loredo Authenticated and [facility]
--- NOTE | 2024-01-04 09:56 | CT_ITS ---
FINAL REPORT TECHNIQUE: Axial images were obtained from the lung apex to the mid abdomen by computed tomography. This study was performed with techniques to keep radiation doses as low as reasonably achievable (ALARA). Individualized dose reduction techniques using automated exposure control or adjustment of mA and/or kV according to the patient's size were employed. CLINICAL HISTORY: NICOTINE DEPENDENCE smoker 1 ppd x 30 years FINDINGS: CHEST CT LOW DOSE CTDI vol (mGy): 2.90 DLP (mGy-cm): 98.21 There is no axillary adenopathy. There is no hilar or mediastinal adenopathy. The heart is normal in size. There is mild coronary artery calcification. There is no pericardial or pleural effusion. There are several calcified granulomas. Mild pulmonary scarring is identified. There is a 6 mm ground-glass nodule in the posterior left upper lobe well seen on image 28. Limited images of the upper abdomen are unremarkable. IMPRESSION: Left upper lobe nodule. Lung RADS category 2. Recommend 12 month follow-up low-dose chest CT. Reviewed, Interpreted and Dictated by Shane Edwards III, MD Transcribed by Sugar Obrien Authenticated and [facility]
== END 2024-01-04 23:59 | disposition home or self-care (01) ==
LOC: RAD 09:40
PROVIDERS: PCP Nurse Practitioner Family; Visit Provider Nurse Practitioner Family
DX: Z78.0 Asymptomatic menopausal state (principal); Z87.891 Personal history of nicotine dependence
CPT/HCPCS: 71271; 77080

== ENCOUNTER 2024-03-28 09:55 | Day surgery (SDC) | payer MEDICARE, SELFPAY ==
[2024-03-20 12:11] VITALS: BMI 26.6
[2024-03-28] MEDS: LACTATED RINGERS 1000ML 1,000 ML 25 ML IV (10:11)
[2024-03-28 10:18] VITALS: BP 117/80; PULSE 111; RESP 18; TEMP 36.5; O2SAT 94
--- NOTE | 2024-03-28 10:50 | P.PNANES_ITS ---
[facility] Disclaimer: The information contained in this section may have been updated after the patient was seen, as this information can be updated by other users. Medical History Anxiety and depression Bunion Bronchitis History of gastroesophageal reflux (GERD) Thyroid disease Hyperlipidemia Skin cancer Surgical History H/O tubal ligation History of surgery History of surgery Family History Other CHF (congestive heart failure) Social History Smoking Status: Current every day smoker tobacco type: cigarettes packs per day: 1 second hand exposure: Yes alcohol intake: never substance use type: denies use current occupational status: retired Travel in the last 8 weeks: None household members: spouse housing: house current occupational exposures/hazards: No caffeine: Yes [facility] Anesthesia Checklist Patient Identification Patient Identification: Verbal (Name & ) Structural Data Admitted From: Home Planned Operative Procedure/s: colonoscopy Additional verifications Anesthesia Reactions: No Hx Blood Transfusions: No Blood Transfusion Reaction: No Airway Assessment Mallampati Score:: Class II C-Spine Mobility Assessed: Yes TMJ Mobility Assessed: Yes Dentition: Dentures-good fit Neurological Assessment Level of Consciousness: Awake, Alert and Appropriate Anesthesia Plan Anesthesia Risk discussed: Yes Anesthesia Plan: Verified ASA Class: II Anesthesia Type: MAC
[2024-03-28 10:55] VITALS: O2SAT 94
--- NOTE | 2024-03-28 11:17 | P.HP_ITS ---
History of Present Illness *Admission Date: 03/28/24 *Reason for visit:: Screening/personal history of colon polyps *History of present illness: Mrs. Huggins is a 68-year-old female who is here for follow-up screening/surveillance colonoscopy. The examination is deemed medically necess sergio for screening. The patient has been seen, interviewed and examined prior to the procedure by both myself and the anesthesia provider. [facility] Disclaimer: The information contained in this section may have been updated after the patient was seen, as this information can be updated by other users. Medical History (Updated 03/28/24 @ 11:18 by Jordan Diamond II, MD) Anxiety and depression Bunion Bronchitis History of gastroesophageal reflux (GERD) Thyroid disease Hyperlipidemia Skin cancer Surgical History H/O tubal ligation History of surgery History of surgery Family History Other CHF (congestive heart failure) Social History Smoking Status: Current every day smoker tobacco type: cigarettes packs per day: 1 second hand exposure: Yes alcohol intake: never substance use type: denies use current occupational status: retired Travel in the last 8 weeks: None household members: spouse housing: house current occupational exposures/hazards: No caffeine: Yes Other Medical History Have you received the Flu Vaccine for this season: Yes Have you received the Pneumonia Vaccine: Yes (2018) Meds Home Medications and Allergies Home Medications ?Medication ?Instructions ?Recorded ?Confirmed ?Type calcium-vitamin D3-vitamin K 500 1 each PO DAILY Supplement 03/08/19 03/20/24 History mg-1,000 unit-40 mcg chewable tablet paroxetine mesylate 40 mg tablet 40 mg PO DAILY Pain 03/08/19 03/28/24 History trazodone 100 mg tablet 100 mg PO HS sleep 03/08/19 03/20/24 History albuterol sulfate 90 mcg/actuation 90 mcg IH QID PRN Dyspnea 03/30/19 03/20/24 History breath activated powder inhaler cetirizine 10 mg tablet 10 mg PO DAILY Allergy symptoms 03/30/19 03/20/24 History clobetasol 0.05 % scalp solution 50 ml TP BID Skin condition 03/30/19 03/20/24 History fluticasone propionate 50 50 mcg IH DAILY Breathing problems 03/30/19 03/20/24 History mcg/actuation blister powder for inhalation cholecalciferol (vitamin D3) 25 1,000 unit PO DAILY Supplement 08/18/20 03/20/24 History mcg (1,000 unit) capsule bupropion HCl (smoking deter) 150 150 mg PO DAILY 03/20/24 03/20/24 History mg tablet,12 hr sustained-release(smoking deterrent) cyclobenzaprine 5 mg tablet 5 mg PO DAILY PRN Spasms 03/20/24 03/20/24 History simvastatin 10 mg tablet 10 mg PO DAILY 03/20/24 03/20/24 History New Prescriptions to Start Prescriptions: Allergies Allergy/AdvReac Type Severity Reaction Status Date / Time bacitracin Allergy Rash Verified 03/28/24 10:13 [From Neosporin ([id number])] neomycin Allergy Rash Verified 03/28/24 10:13 [From Neosporin ([id number])] polymyxin B Allergy Rash Verified 03/28/24 10:13 [From Neosporin ([id number])] Exam Data for Last 24 hours Vital signs and Labs for Last 24 Hours: Temp Pulse Resp BP Pulse Ox O2 Del Method O2 Flow Rate 97.7 F 111 H 18 117/80 94 L Nasal Cannula 5 03/28/24 10:18 03/28/24 10:18 03/28/24 10:18 03/28/24 10:18 03/28/24 10:18 03/28/24 10:55 03/28/24 10:55 *Routine HEENT Exam Head: Present normocephalic Eye: Present EOMI and PERRL ENT: Present mucous membranes moist *Routine Neck Exam Neck: Present supple *Routine Respiratory Exam Respiratory: Present CTA bilaterally *Routine Cardiovascular Exam Cardiovascular: Present RRR *Routine Abdominal Exam Abdominal: Present soft and normoactive bowel sounds; Absent tenderness *Routine Rectal Exam Rectal:: deferred *Routine Genitalia Exam Genitalia:: deferred *Routine Extremities Exam Extremities: Absent cyanosis, clubbing or edema *Routine Skin Exam Skin: Present warm; Absent rash *Routine Neurological Exam Neurological: Present alert and oriented X3 Assessment and Plan *Assessment and plan (1) Screening for colon cancer: Status: Acute Category: Medical Code(s): Z12.11 - Encounter for screening for malignant neoplasm of colon (2) Personal history of colon polyps, unspecified: Status: Acute Category: Medical Code(s): Z86.0100 - Personal history of colon polyps, unspecified Plan A/P: 1. Screening/personal history of colon polyps is the preprocedural diagnosis. The patient will be anesthetized/sedated using MAC sedation. The patient has been seen and examined. Cardiac and lung assessment prior to the examination is stable. Proceed with planned colonoscopy
--- NOTE | 2024-03-28 11:19 | P.PCN_ITS ---
[facility] Procedure Note Date: 03/28/24 Time: 11:22 Procedure Note:: Colonoscopy Procedure Report: Colonoscopy Endoscopist: Jordan Diamond II, MD Referring physician: CLEMENT Mariee Date of Procedure: March 28, 2024 Equipment: Olympus 190 variable stiffness pediatric colonoscope Sedation: MAC sedation Indication: Mrs. Huggins is a 68-year-old female who is here for follow-up screening/surveillance colonoscopy secondary to a personal history of colon polyps. She had a colonoscopy with [facility] in August 2020 and had 6 polyps (tubular adenomas x 5/hyperplastic polyp x 1) removed. She reports no abdominal pain, weight loss or rectal bleeding. She does have some alternating IBS (c onstipation with diarrhea to regular). The patient does state that her maternal aunt had colon cancer in her 70s. Procedure: Prior to the procedure, a history and physical exam was performed, and patient's medications and allergies were reviewed. The risks, benefits and alternatives of the sedation and procedure were discussed with the patient. All questions were answered and informed consent was obtained. The patient was brought to the procedure room. Patient identification and proposed procedure were verified by the physician and the nurse. The patient was placed in a left lateral decubitus position and the scope was passed under direct vision. Throughout the procedure, the patient's blood pressure, pulse, and oxygen saturations were monitored continuously. The colonoscopy was accomplished without difficulty. The patient tolerated the procedure well. Findings: On digital rectal examination there was normal rectal tone. There were no external hemorrhoids. The colonoscope was introduced through the anal canal to the rectum and advanced to the cecum. The ileocecal valve and appendiceal orifice were identified. The scope was advanced a short distance into the ileum which appeared grossly normal. The scope was then withdrawn into the colon. The cecum, ascending and transverse colon and mucosa were grossly normal. There were scattered diverticuli throughout the descending and sigmoid colon (LEFT colon). The rectum itself was normal. Upon retroflexion within the rectum there were grade 1 internal hemorrhoids. The preparation was excellent throughout with Thelma Preparation Score of 9. The cecal time was 12 minutes. Impression: 1. Left-sided diverticulosis 2. Grade 1 internal hemorrhoids Plan: Based upon her history of prior adenomatous polyps and family history, I would recommend in 5 to 7 years. I would encourage psyllium bulking fiber supplementation on a long-term daily maintenance basis.
[2024-03-28 11:21] VITALS: BP 114/57; PULSE 83; RESP 16; TEMP 36.8; O2SAT 93
[2024-03-28 11:31] VITALS: BP 93/51; PULSE 77; RESP 16; O2SAT 96
[2024-03-28 11:41] VITALS: BP 92/50; PULSE 69; O2SAT 95
[2024-03-28 11:53] VITALS: BP 96/60; PULSE 71; RESP 18; O2SAT 97
== END 2024-03-28 12:20 | disposition home or self-care (01) ==
PROVIDERS: PCP Nurse Practitioner Family; Visit Provider Internal Medicine Gastroenterology
PROC: 0DJD8ZZ Inspection of Lower Intestinal Tract, Via Natural or Artificial Opening Endoscopic (ICD-10-PCS; CPT 45378; principal; 2024-03-28 12:30)
DX: K57.30 Diverticulosis of large intestine without perforation or abscess without bleeding (principal); Z12.11 Encounter for screening for malignant neoplasm of colon; Z86.0100 Personal history of colon polyps, unspecified; Z80.0 Family history of malignant neoplasm of digestive organs; K64.0 First degree hemorrhoids
CPT/HCPCS: G0121; 99221; J7120

== ENCOUNTER 2024-04-15 16:54 | Outpatient (CLI) | payer MEDICARE, SELFPAY ==
--- NOTE | 2024-04-15 16:56 | MM_ITS ---
PROCEDURE INFORMATION: Exam: MG Bilateral Screening 3D Mammography Exam date and time: 04/15/2024 4:41 PM Age: 68 years old Clinical indication: Screening examination TECHNIQUE: Imaging protocol: Bilateral Screening tomosynthesis and 2D mammography including computer-aided detection (CAD) when performed. COMPARISON: 1. MG MM DIG MAMM DX UNILAT RT CAD 05/05/2023 2:37 PM 2. MG MM DIG SCREENING MAMM BI W/CAD 04/13/2023 3:19 PM FINDINGS: MAMMOGRAPHY: Breast composition: There are scattered areas of fibroglandular density. Mass: No suspicious masses. Architectural distortion: None. Calcifications: Right breast calcifications are not adequately assessed without magnification views. Asymmetric density: None. Skin thickening: None. Axillary adenopathy: None. IMPRESSION: 1. The patient is overdue for follow-up right breast diagnostic mammogram for right breast calcifications. 2. No mammographic findings suspicious for malignancy in the left breast. ASSESSMENT: BI-RADS Category 0: Incomplete- Need Additional Imaging Evaluation.
== END 2024-04-15 23:59 | disposition home or self-care (01) ==
LOC: RAD 16:54
PROVIDERS: PCP Internal Medicine Adolescent Medicine; Visit Provider Internal Medicine Adolescent Medicine
DX: Z12.31 Encounter for screening mammogram for malignant neoplasm of breast (principal)
CPT/HCPCS: 77063; 77067

== ENCOUNTER 2024-05-07 15:05 | Outpatient (CLI) | payer MEDICARE, SELFPAY ==
--- NOTE | 2024-05-07 15:11 | MM_ITS ---
PROCEDURE INFORMATION: Exam: MG Right Diagnostic Breast Tomosynthesis Exam date and time: 05/07/2024 3:03 PM Age: 68 years old Clinical indication: Patient recalled for further evaluation of right breast calcifications TECHNIQUE: Imaging protocol: Right Diagnostic tomosynthesis and 2D mammography including computer-aided detection (CAD) when performed. Unilateral or bilateral exam. COMPARISON: 1. MG MM DIG SCREENING MAMM BI W/CAD 04/15/2024 4:41 PM 2. MG MM DIG MAMM DX UNILAT RT CAD 05/05/2023 2:37 PM FINDINGS: MAMMOGRAPHY: Breast composition: There are scattered areas of fibroglandular density. Breast mammogram findings: Digital diagnostic magnification views of the right breast is not demonstrate any suspicious calcifications. Two punctate calcifications are incidentally noted. IMPRESSION: No mammographic evidence of malignancy. No suspicious calcifications.Annual bilateral mammographic screening is recommended unless otherwise clinically indicated. ASSESSMENT: BI-RADS Category 2: Benign.
== END 2024-05-07 23:59 | disposition home or self-care (01) ==
LOC: RAD 15:06
PROVIDERS: PCP Internal Medicine Adolescent Medicine; Visit Provider Internal Medicine Adolescent Medicine
DX: R92.8 Other abnormal and inconclusive findings on diagnostic imaging of breast (principal)
CPT/HCPCS: 77061; 77065; G0279

== ENCOUNTER 2024-12-12 16:54 | Outpatient (CLI) | payer MEDICARE, SELFPAY ==
--- OUTSIDE RECORDS SUMMARY | 2024-09-28 17:30 | XMS_ITS ---
Author Organization [facility] [place] Address [address] [place] [address] Care Team Providers Care Building Mover Name Role Phone AuroraSixto miguel Primary Care Provider Migration, Provider Unavailable Unavailable Allergies Allergen (clinical drug ingredient) Drug/Non Drug Allergy documented on EMR Reaction Allergy Type Onset Date Status Neosporin Unknown Drug Allergy Active [facility] Conversion Encounter Medications Medication SIG (Take, Route, Frequency, Duration) Notes Start Date End Date Status Synthroid 25 MCG 1 tab(s) orally once a day for 90 days Active Simvastatin 10 MG 1 tab(s) orally once a day (in the evening) for 90 days 01/25/2024 Active buPROPion HCl ER (XL) 150 MG 1 tab(s) orally every 24 hours for 90 days Active PARoxetine HCl 40 MG 1 tab(s) orally once a day Active Cyclobenzaprine HCl 5 MG 1 tab(s) orally at night as needed for muscle spasm for 90 days Active Fluticasone Propionate 50 MCG/ACT 1 spray(s) intranasally once a day for 90 days Active Vitamin D3 1 TAB(S) ORALLY ONCE A DAY *Please review and pick correct strength-formulat ion from [facility]. If intended option is not shown, discontinue and re-order from Quick Search* Active Multivitamin - 1 tab(s) orally once a day for 30 day(s) Active Vitamin C 500 MG 1 tab(s) orally once a day for 30 day(s) Active traZODone HCl 100 MG 2 tablets orally once a day at bedtime Active IMODIUM 2 MG 1 CAP(S) ORALLY EVERY 4 HOURS prn *Please review for potential replacement for e-prescription and drug interaction check* Active Encounters Encounter Location Date Provider Diagnosis [facility] [address] [place] [address] 09/28/2024 Provider Migration Plan Of Treatment No Information Progress Notes * Barbara HUGGINS LDOB:12/1955 (69 yo F)Acc No.[id number]:09/28/2024 Patient: Barbara KELLY Provider: Magy little Migration :1955 A ge:69 Y S ex:Female Date:09/28/2024 Address:[address] [place] [address], [address], [place], [id number] Pcp:Sixto Savage Subjective: * Chief Complaints: * 1 . [facility] En[facility]. * Medical History: * Medications: [...] *Please review and pick correct strength-formulation from [facility] options. If intended option is not shown, [...] Treatment: * * Electronic signature of Prov ider Migration on 12/12/2024 at 04:57 PM EDT Sign off status: Pending * Provider: Magy little Migration Date: 0 09/28/2024 Generated for Maria D ayon/Parish/Susi on: 0 12/12/2024 04:57 PM EDT
--- OUTSIDE RECORDS SUMMARY | 2024-11-21 07:15 | XMS_ITS ---
Author Organization [facility] Address [address] [place] [address] Care Team Providers Care Securities Dealer Name Role Phone AuroraSixto miguel Primary Care Provider Allergies Allergen (clinical drug ingredient) Drug/Non Drug Allergy documented on EMR Reaction Allergy Type Onset Date Status Neosporin Unknown Drug Allergy Active REASON FOR VISIT cat bite on Lt wrist Medications Medication SIG (Take, Route, Frequency, Duration) Notes Start Date End Date Status Simvastatin 10 MG 1 tab(s) orally once a day (in the evening) for 90 days 01/25/2024 Active Synthroid 25 MCG 1 tab(s) orally once a day for 90 days Active PARoxetine HCl 40 MG 1 tab(s) orally once a day Active buPROPion HCl ER (XL) 150 MG 1 tab(s) orally every 24 hours for 90 days Active Amoxicillin-Pot Clavulanate 875-125 MG as directed orally every 12 hours for 7 days 11/21/2024 Active traZODone HCl 100 MG 2 tablets orally once a day at bedtime Active Cyclobenzaprine HCl 5 MG 1 tab(s) orally at night as needed for muscle spasm for 90 days Active Fluticasone Propionate 50 MCG/ACT 1 spray(s) intranasally once a day for 90 days Active Vitamin C 500 MG 1 tab(s) orally once a day for 30 day(s) Active Vitamin D3 1 TAB(S) ORALLY ONCE A DAY *Please review and pick correct strength-formulat ion from [employer] options. If intended option is not shown, discontinue and re-order from Quick Search* Active IMODIUM 2 MG 1 CAP(S) ORALLY EVERY 4 HOURS prn *Please review for potential replacement for e-prescription and drug interaction check* Active Multivitamin - 1 tab(s) orally once a day for 30 day(s) Active Vital Signs Temperature 98.2 degrees Fahrenheit 11/22/19 25 Heart Rate 82 /min 11/21/2024 Blood pressure systolic 124 mm Hg 11/22/19 25 Blood pressure diastolic 80 mm Hg 025 Height 5 ft 8 in in 11/21/2024 Weight 172 lbs 11/21/2024 BMI 26.15 kg/m2 11/21/2024 Encounters Encounter Location Date Provider Diagnosis [address] [address] 11/21/2024 Sixto Savage Cat bite, initial encounter W55.01XA Assessments Encounter Date Diagnosis (ICD Code) Assessment Notes Treatment Notes Treatment Clinical Notes Section Notes 11/21/2024 Cat bite, initial encounter (ICD-10 - W55.01XA) Cover with Augmentin. I like to see her back in 5 days to make sure there is no swelling, low threshold for imaging if there is persistent swelling or pain next week Plan Of Treatment Medication Medication Name Sig Start Date Stop Date Notes Amoxicillin-Pot Clavulanate 875-125 MG as directed orally every 12 hours for 7 days 11/21/2024 Treatment Notes Assessment Notes Cat bite, initial encounter Cover with A ugmentin. I like to see her back in 5 days to make sure there is no swelling, low threshold for imaging if there is persistent swelling or pain next week Next Appt Details Follow Up: prn, Reason: Progress Notes * EMILEColbyry LDOB:12/1955 (69 yo F)Acc No.[id number]:11/21/2024 Progress Notes Patient: Barbara KELLY Provider: Alexandre Savage MD :1955 A ge:69 Y S ex:Female Date:11/21/2024 Address:[address] [place] [address], [address], [id number] Subjective: * Chief Complaints: * 1 . cat bite on Lt wrist. * HPI: g en: Was bitten by her cat yesterday on the dorsum of her left hand. It is her own cat which has been updated with shots. She is concerned because of the persistent pain. 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 , Insomnia, Anxiety, Tobacco use, Normal mammogram 12/13, Colonscopy and EGD 2020, Colonoscopy 2023, Dr Diamond, normal. Repeat 5-7 years. * Medications: T aking IMODIUM 2 MG CAPSULE 1 CAP(S) ORALLY EVERY 4 HOURS , Notes to Pharmacist: prn *Please review for potential replacement for e-prescription and drug interaction check*, Taking Multivitamin - Tablet 1 tab(s) orally once a day , Taking Vitamin D3 1 TAB(S) ORALLY ONCE A DAY , Notes to Pharmacist: *Please review and pick correct strength-formulation from [employer] options. If intended option is not shown, [...] 1 tab(s) orally once a day , Medication List reviewed and reconciled with the patient * Allergies: N eosporin. Objective: * Vitals: N urse: dw, Pain: 6, Temp: 98.2, RR: 20, HR: 82, BP: 124/80, Ht: 5 ft 8 in, Wt: 172, BMI:26.15. * Examination: G eneral Examination: P uncture wound on the dorsum of the left hand just proximal to the first knuckle. No redness. No drainage. Assessment: * Assessment: 1. C at bite, initial encounter - W55.01XA (Primary) Plan: * Treatment: * Follow Up: p rn * * Sign off status: Completed true * Provider: Alexandre Savage MD Date: 0 11/21/2024 Generated for Maria D ayon/Parish/Reginasmitting on: 12/12/2024 04:57 PM EDT History and Physical Notes * HPI (History of Present Illness) Category Sub-Category Detail Notes Category Not es Was bitten by her cat yesterday on the dorsum of her left hand. It is her own cat which has been updated with shots. She is concerned because of the persistent pain. Examination Category Sub-Category Detail Notes Category Not es General Examination Puncture wound on the dorsum of the left hand just proximal to the first knuckle. No redness. No drainage.
--- OUTSIDE RECORDS SUMMARY | 2024-11-26 07:30 | XMS_ITS ---
Author Organization [facility] Address [address] [place] [address] Care Team Providers Care Body Technician/Painter Name Role Phone Sixto Savage Primary Care Provider REASON FOR VISIT fu Encounters Encounter Location Date Provider Diagnosis [facility] [address] [address] 11/26/2024 Sixto Savage Plan Of Treatment No Information Progress Notes * Barbara HUGGINS LDOB:12/1955 (69 yo F)Acc No.[id number]:11/26/2024 Progress Notes Patient: Barbara KELLY Provider: Alexandre Savage MD :1955 A ge:69 Y S ex:Female Date:11/26/2024 Address:[address] [place] [address], [address], [id number] Subjective: * Chief Complaints: * 1 . Fu. * Medical History: Objective: * Vitals: Assessment: Plan: * Treatment: * * Electronic signature of Richie Savage MD FAAP on 12/12/2024 at 04:56 PM EDT Sign off status: Pending * Provider: Alexandre Savage MD Date: 11/26/2024 Generated for Printi ng/Faxing/eTransmitting on: 12/12/2024 04:56 PM EDT
--- OUTSIDE RECORDS SUMMARY | 2024-12-12 16:56 | XMS_ITS | Clinical Summary ---
Author Organization [facility] Address [address] [place] [address] Care Team Providers Care Insurance Examining Clerk Name Role Phone Sixto Savage MD Primary Care Provider [phone] Social History Tobacco Use Types Packs/Day Years Used Date Smoking Tobacco: Never Assessed Comments Unknown Sex and Gender Information Value Date Recorded Sex Assigned at Not on file Legal Sex Female 8:16 PM EDT Gender Identity Not on file Sexual Orientation Not on file Plan of Treatment Upcoming Encounters Date Type Department Care Team (Late st Contact Info) Description 02/04/2025 11:30 AM EDT Ovarian Cancer Screening [place] [facility] [address] [place] [address] Health Maintenance Due Date Last Done Comments [facility]-Bone Density Scan 1955 [facility]-Depression Screening 1955 [facility]-Hepatitis C Screening 1955 [facility]-Medicare Annual Wellness (AWV) 1955 [facility]-Infant/Child/Adol SDOH Screenings 1955 [facility]- SDOH Screenings 1974 [facility]-Adult SDOH Screenings 1974 CT Colonography 2001 Colonoscopy 2001 FIT-DNA 2001 FIT 2001 FOBT 2001 Sigmoidoscopy 2001 [facility]-Colorectal Cancer Screening 2001 [facility]-Breast Cancer Screening 2006 [facility]-Zoster Vaccines (1 of 2) 2006 [facility]-Pneumococcal Vaccine: 50+ Years (3 of 3 - PCV20 or PCV21) 05/07/2023 05/07/2018, 05/03/2017 [id number] Vaccine (3 - season) 2024 11/05/2020, 10/08/2020 [facility]-Influenza Vaccine (Season Ended) 2025 04/21/2021, 04/30/2020, 04/09/2019, Additional history exists [facility]-DTaP,Tdap,and Td Vaccines (3 - Td or Tdap) 12/17/2029 12/18/2019, 03/22/2013 [facility]-RSV Vaccine: 60+ Years or (1 - 1-dose 75+ series) 2031 HPV Vaccines Aged Out No longer eligi ble based on patient's age to complete this topic [facility]-HIB Vaccines Aged Out No longer e ligible based on patient's age to complete this topic [facility]-Hepatitis A Vaccines Aged Out No longer eligible based on patient's age to complete this topic [facility]-IPV Vaccines Aged Out No longer e ligible based on patient's age to complete this topic [facility]-Rotavirus Vaccines Aged Out No lo nger eligible based on patient's age to complete this topic Insurance [address] [place] [address] [facility] MEDICARE Care Teams Insurance Examining Clerk Relationship Specialty Start Date End Date Sixto Savage MD [address] [place] [address] PCP - General 11/06/20
--- OUTSIDE RECORDS SUMMARY | 2024-12-12 16:57 | XMS_ITS | Patient Health Record ---
Author Organization [facility] Address [address] [place] [address] Care Team Providers Care Architect Naval Name Role Phone AuroraSixto miguel Primary Care Provider Khadijah Marques Unavailable [phone] Migration, Provider Unavailable Unavailable Allergies Allergen (clinical drug ingredient) Drug/Non Drug Allergy documented on EMR Reaction Allergy Type Onset Date Status Neosporin Unknown Drug Allergy Active Results Component Value Reference Range Notes Mammogram: Additional/ Magni fy views Reviewed date:05/16/2024 04:49:13 PM Interpretation: Performing Lab: Notes/Report: LIPID PANEL, STANDARD (7600) Reviewed date:12/21/2023 04:34:06 PM Interpretation: Performing Lab:CB, [facility] Vsgv2135 [facility], [facility] HospitalTrxbAN[address] Raheem Davalos Notes/Report: FASTING:YES FASTING: YES CHOLESTEROL, TOTAL 225 <200 mg/dL HDL CHOLESTEROL 42 > OR = 50 mg/dL TRIGLYCERIDES 358 <150 mg/dL If a non-fasting specimen was collected, consider repeat triglyceride testing on a fasting specimen if clinically indicated. Ria et al. J. of Clin. Lipidol. 2015;9:129-169. LDL-CHOLESTEROL 132 Reference range: <100 Desirable range <100 mg/dL for primary prevention; <70 mg/dL for patients with CHD or diabetic patients with > or = 2 CHD risk factors. LDL-C is now calculated using the Filippo-Zamudio calculation, which is a validated novel method providing better accuracy than the Friedewald equation in the estimation of LDL-C. Filippo MEJIA et al. CHANDANA. 2013;310(75): 0338-7413 (http://education.[employer].com/faq/LHA047) CHOL/HDLC RATIO 5.4 <5.0 (calc) NON HDL CHOLESTEROL 183 <130 mg/dL (calc) For patients with diabetes plus 1 major ASCVD risk factor, treating to a non-HDL-C goal of <100 mg/dL (LDL-C of <70 mg/dL) is considered a therapeutic option. COMPREHENSIVE METABOLIC PANE (85222) Reviewed date:12/21/2023 04:34:06 PM Interpretation: Performing Lab:[facility]ige[facility]ECNe[address], Variab.lyAnkrRX[address] Raheem Davalos Notes/Report: FASTING:YES FASTING: YES GLUCOSE 93 65-99 mg/dL Fasting reference interval UREA NITROGEN (BUN) 14 7-25 mg/dL CREATININE 1.45 0.50-1.05 mg/dL EGFR 40 > OR = 60 mL/min/1.73m2 BUN/CREATININE RATIO 10 6-22 (calc) SODIUM 139 135-146 mmol/L POTASSIUM 4.6 3.5-5.3 mmol/L CHLORIDE 104 98-110 mmol/L CARBON DIOXIDE 25 20-32 mmol/L CALCIUM 9.9 8.6-10.4 mg/dL PROTEIN, TOTAL 7.0 6.1-8.1 g/dL ALBUMIN 4.7 3.6-5.1 g/dL GLOBULIN 2.3 1.9-3.7 g/dL (calc) ALBUMIN/GLOBULIN RATIO 2.0 1.0-2.5 (calc) BILIRUBIN, TOTAL 0.7 0.2-1.2 mg/dL ALKALINE PHOSPHATASE 85 37-153 U/L AST 20 10-35 U/L ALT 19 6-29 U/L MAGNESIUM (622) Reviewed date:12/21/2023 04:34:06 PM Interpretation: Performing Lab:[facility] [address], Variab.lyHachRH[address] Raheem Davalos Notes/Report: FASTING:YES FASTING: YES MAGNESIUM 2.3 1.5-2.5 mg/dL CREATINE KINASE, TOTAL (374) Reviewed date:12/21/2023 04:34:06 PM Interpretation: Performing Lab:[facility] [address], [place] TfxaON[address] Raheem Davalos Notes/Report: FASTING:YES FASTING: YES CREATINE KINASE, TOTAL 62 29-143 U/L CBC (INCLUDES DIFF/PLT) (639 9) Reviewed date:12/21/2023 04:34:06 PM Interpretation: Performing Lab:[facility] [address], [facility] HealthExrpJA[address] Raheem Davalos Notes/Report: FASTING:YES FASTING: YES WHITE BLOOD CELL COUNT 6.8 3.8-10.8 Thousand/ uL RED BLOOD CELL COUNT 3.90 3.80-5.10 Million/uL HEMOGLOBIN 12.5 11.7-15.5 g/dL HEMATOCRIT 38.6 35.0-45.0 % MCV 99.0 80.0-100.0 fL MCH 32.1 27.0-33.0 pg MCHC 32.4 32.0-36.0 g/dL RDW 12.3 11.0-15.0 % PLATELET COUNT 223 140-400 Thousand/uL MPV 10.8 7.5-12.5 fL ABSOLUTE NEUTROPHILS 3924 3334-5795 cells/uL ABSOLUTE LYMPHOCYTES 2020 850-3900 cells/uL ABSOLUTE MONOCYTES 558 200-950 cells/uL ABSOLUTE EOSINOPHILS 231 15-500 cells/uL ABSOLUTE BASOPHILS 68 0-200 cells/uL NEUTROPHILS 57.7 LYMPHOCYTES 29.7 MONOCYTES 8.2 EOSINOPHILS 3.4 BASOPHILS 1.0 SED RATE BY MODIFIED RAD ESCOTO (809) Reviewed date:12/21/2023 04:34:06 PM Interpretation: Performing Lab:[facility] [address], [place] VrlwGP[address] Raheem Davalos Notes/Report: FASTING:YES FASTING: YES SED RATE BY MODIFIED FREDIS 14 < OR = 30 mm/h C-REACTIVE PROTEIN (4420) Reviewed date:12/21/2023 04:34:06 PM Interpretation: Performing Lab:[facility] [address], [place] JvilHQ[address] Raheem Davalos Notes/Report: FASTING:YES FASTING: YES C-REACTIVE PROTEIN 3.1 <8.0 mg/L HEMOGLOBIN A1c (496) Reviewed date:12/21/2023 04:34:06 PM Interpretation: Performing Lab:[facility] [address] [facility] [place] XtvuRK[address] Raheem Davalos Notes/Report: FASTING:YES FASTING: YES HEMOGLOBIN A1c 5.4 <5.7 % of total Hgb For the purpose of screening for the presence of diabetes: <5.7% Consistent with the absence of diabetes 5.7-6.4% Consistent with increased risk for diabetes (prediabetes) > or =6.5% Consistent with diabetes This assay result is consistent with a decreased risk of diabetes. Currently, no consensus exists regarding use of hemoglobin A1c for diagnosis of diabetes in children. According to [place] Diabetes Association (ADA) guidelines, hemoglobin A1c <7.0% represents optimal control in non- diabetic patients. Different metrics may apply to specific patient populations. Standards of Medical Care in Diabetes(ADA). This test was performed on the Marshall marquita c503 platform. Effective 08/30/23, a change in test platforms from the Morales Template Cutter to the Marshall marquita c503 may have shifted HbA1c results compared to historical results. Based on laboratory validation testing conducted at [facility], the Marshall platform relative to the Morales platform had an average increase in HbA1c value of < or = 0.3%. This difference is within accepted variability established by the National Glycohemoglobin Standardization Program. Note that not all individuals will have had a shift in their results and direct comparisons between historical and current results for testing conducted on different platforms is not recommended. TSH W/REFLEX TO FT4 (24415) Reviewed date:12/21/2023 04:34:07 PM Interpretation: Performing Lab:[facility] [address] [facility] [place] BubeHM[address] Raheem Davalos Notes/Report: FASTING:YES FASTING: YES TSH W/REFLEX TO FT4 1.82 0.40-4.50 mIU/L VITAMIN D,25-OH,TOTAL,IA (17 306) Reviewed date:12/21/2023 04:34:07 PM Interpretation: Performing Lab:[facility] [address] [facility] [place] PdmcFT[address] Raheem Davalos Notes/Report: FASTING:YES FASTING: YES VITAMIN D,25-OH,TOTAL,IA 37 30-100 ng/mL Vitamin D Status 25-OH Vitamin D: Deficiency: <20 ng/mL Insufficiency: 20 - 29 ng/mL Optimal: > or = 30 ng/mL For 25-OH Vitamin D testing on patients on D2-supplementation and patients for whom quantitation of D2 and D3 fractions is required, the QuestAssureD(TM) 25-OH VIT D, (D2,D3), LC/MS/MS is recommended: order code 38883 (patients >2yrs). See Note 1 Note 1 For additional information, please refer to http://education.BERD/faq/FND983 (This link is being provided for informational/ educational purposes only.) DEXA Hip and Spine - Screeni ng Reviewed date:01/08/2024 10:52:34 AM Interpretation: Performing Lab: Notes/Report: Microalbumin (In-House) Reviewed date:08/22/2024 08:03:28 AM Interpretation:Normal Performing Lab: Notes/Report: Normal ALB 10mg CRE 100mg A:C <30mg Mammogram : Bilateral Reviewed date:04/23/2024 10:10:07 AM Interpretation: Performing Lab: Notes/Report: CT Scan : Chest, Lung Cancer Screening Reviewed date:01/08/2024 10:53:03 AM Interpretation: Performing Lab: Notes/Report: Medications Medication SIG (Take, Route, Frequency, Duration) Notes Start Date End Date Status traZODone HCl 100 MG 2 tablets orally once a day at bedtime for 90 days Active IMODIUM 2 MG 1 CAP(S) ORALLY EVERY 4 HOURS prn *Please review for potential replacement for e-prescription and drug interaction check* Active Multivitamin - 1 tab(s) orally once a day for 30 day(s) Active Simvastatin 10 MG 1 tab(s) orally once a day (in the evening) for 90 days 01/25/2024 Active Synthroid 25 MCG 1 tab(s) orally once a day for 90 days Active PARoxetine HCl 40 MG 1 tab(s) orally once a day for 90 days Active buPROPion HCl ER (XL) 150 MG 1 tab(s) orally every 24 hours for 90 days Active Cyclobenzaprine HCl 5 MG 1 tab(s) orally at night as needed for muscle spasm for 90 days Active Fluticasone Propionate 50 MCG/ACT 1 spray(s) intranasally once a day for 90 days Active Vitamin C 500 MG 1 tab(s) orally once a day for 30 day(s) Active Vitamin D3 1 TAB(S) ORALLY ONCE A DAY *Please review and pick correct strength-formulat ion from [employer] options. If intended option is not shown, discontinue and re-order from Quick Search* Active Amoxicillin-Pot Clavulanate 875-125 MG as directed orally every 12 hours for 7 days 11/21/2024 Active Immunizations Vaccine Route Administration Date Status Comme nts Prevnar PCV-13 (Pneumococcal conjugate 13) IM Intramuscular 05/07/2018 Administered Pneumovax 23 IM Intramuscular 05/03/2017 Administered Influenza-Fluzone 3+years (NON-MEDICARE) IM Intramuscular 05/07/2018 Administered Influenza (Fluzone)--Medicare only IM Intramuscular 04/07/2016 Administered Influenza (Fluzone)--Medicare only IM Intramuscular 05/03/2017 Administered FLUZONE 6MO - OLDER IM Intramuscular 04/09/2019 Administer ed Flublok IM Intramuscular 04/30/2020 Administered Flublok IM Intramuscular 04/21/2021 Administered Boostrix Unknown 03/22/2013 Administered Adacel (Tdap) Unknown 12/18/2019 Administered Problems Problem Type SNOMED Code ICD Code Onset Dates Problem Status W/U Status Risk Notes Problem 98959361 Generalized anxi ety disorder (F41.1) Active confirmed Problem 9580114 Panlobular emphysema (J43.1) Active confirmed Problem Psoriasis (7201833) Psoriasis, unspecified (L40.9) Active confirmed Problem Abnormal findings on diagnostic imaging of breast (643820397) Other abnormal and inconclusive findings on diagnostic imaging of breast (R92.8) Active confirmed Problem 952123673 Personal history of nicotine dependence (Z87.891) Active confirmed Problem 05107342 Left sciatic ner ve pain (M54.32) Active confirmed Problem 24366066 Allergic rhiniti s (J30.9) Active confirmed Problem 829610239 Hypothyroidism (acquired) (E03.9) Active confirmed Problem 04883007 Hyperlipidemia (E78.5) Active confirmed Problem 15996872 HTN (hypertensio n), benign (I10) Active confirmed Problem 503286937 BMI 25.0-25.9,ad ult (Z68.25) Active confirmed Problem 775547921 Gastroesophageal reflux disease, esophagitis presence not specified (K21.9) Active confirmed Problem 081616707004269 Primary osteoarthritis of right knee (M17.11) Active confirmed Problem 137093844 Chronic insomnia (F51.04) Active confirmed Problem 87218808688786 Arthropathy, multiple sites (M12.9) Active confirmed Problem 16957755 Colon polyps (K63.5) Active confirmed Problem 168422626 Current tobacco use (Z72.0) Active confirmed Problem 427704206 Moderate episode of recurrent major depressive disorder (F33.1) Active confirmed Problem 80431435 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) Active confirmed Problem 93754476 Tobacco dependen ce (F17.200) Active confirmed Problem 577738717 Alcohol consumpt ion binge drinking (F10.10) Active confirmed Problem 356334357 Acute left-sided low back pain with left-sided sciatica (M54.42) Active confirmed Problem Primary osteoarthritis of left hip (M16.12) Active confirmed Problem 269971576 Low back pain at multiple sites (M54.5) Active confirmed Problem 601271129 Neuropathic pain of left lower extremity (M79.2) Active confirmed Problem 373412486 Osteopenia after menopause (M85.80) Active confirmed Vital Signs Heart Rate 82 /min 11/21/2024 Temperature 98.2 degrees Fahrenheit 11/21/2024 Blood pressure diastolic 80 mm Hg 11/21/2024 Height 5 ft 8 in in 11/21/2024 Blood pressure systolic 124 mm Hg 11/21/2024 Weight 172 lbs 11/21/2024 BMI 26.15 kg/m2 11/21/2024 Encounters Encounter Location Date Provider Diagnosis [facility] [address] [place] [address] 09/28/2024 Provider Migration [facility] [address] [address] 01/03/2024 Khadijah Marques Hyperlipidemia E78.5 ; Arthralgia of multiple sites M25.50 ; Moderate episode of recurrent major depressive disorder F33.1 ; Elevated serum creatinine R79.89 and Irregular bowel habits R19.8 [facility] [address] [address] 08/21/2024 Khadijah Shelli Hyperlipidemia E78.5 ; Arthralgia of multiple sites M25.50 ; Moderate episode of recurrent major depressive disorder F33.1 ; Elevated serum creatinine R79.89 ; Irregular bowel habits R19.8 ; Hypothyroidism (acquired) E03.9 and HTN (hypertension), benign I10 [facility] [address] [address] 11/21/2024 Sixto Savage Cat bite, initial encounter W55.01XA [facility] [address] [address] 12/10/2024 Khadijah Marques Moderate episode of recurrent major depressive disorder F33.1 [facility] [address] [place] [address] 01/03/2024 Sixto Savage Breast cancer screening by mammogram Z12.31 and History of nicotine dependence Z87.891 [facility] [address] [address] 01/04/2024 Khadijah Marques Asymptomatic postmenopausal state Z78.0 [facility] [address] [place] [address] 01/22/2024 Khadijah Marques Hyperlipidemia E78.5 [facility] [address] [place] [address] 04/03/2024 Sixto Auroramyriam [facility] [place] [address] [place] [address] 04/22/2024 Sixto Savage Other abnormal and inconclusive findings on diagnostic imaging of breast R92.8 [facility] [address] [address] 08/16/2024 Sixto Savage Hypothyroidism (acquired) E03.9 Assessments Encounter Date Diagnosis (ICD Code) Assessment Notes Treatment Notes Treatment Clinical Notes Section Notes 01/03/2024 Hyperlipidemia (ICD-10 - E78.5) start rosuvastatin, low fat diet, labs again in about 3 months 01/03/2024 Arthralgia of multiple sites (ICD-10 - M25.50) improved overall, off of NSAID as noted, continue cyclobenzaprine PRN, tylenol PRN 01/03/2024 Breast cancer screening by mammogram (ICD-10 - Z12.31) 01/04/2024 Asymptomatic postmenopausal state (ICD-10 - Z78.0) 01/22/2024 Hyperlipidemia (ICD-10 - E78.5) 04/22/2024 Other abnormal and inconclusive findings on diagnostic imaging of breast (ICD-10 - R92.8) 08/16/2024 Hypothyroidism (acquired) (ICD-10 - E03.9) 08/21/2024 Hyperlipidemia (ICD-10 - E78.5) intolerant to several statins in the past but tolerating simvastatin well to this point, labs as noted 08/21/2024 Arthralgia of multiple sites (ICD-10 - M25.50) improved overall, off of NSAID as noted, continue cyclobenzaprine PRN, tylenol PRN 11/21/2024 Cat bite, initial encounter (ICD-10 - W55.01XA) Cover with Augmentin. I like to see her back in 5 days to make sure there is no swelling, low threshold for imaging if there is persistent swelling or pain next week 12/10/2024 Moderate episode of recurrent major depressive disorder (ICD-10 - F33.1) 08/21/2024 Moderate episode of recurrent major depressive disorder (ICD-10 - F33.1) continue wellbutrin, paxil, return precautions reviewed 01/03/2024 History of nicotine dependence (ICD-10 - Z87.891) 01/03/2024 Moderate episode of recurrent major depressive disorder (ICD-10 - F33.1) continue wellbutrin, paxil, return precautions reviewed 01/03/2024 Elevated serum creatinine (ICD-10 - R79.89) continue to hold NSAIDS, continue good water intake and repeat in 3 months along with urine microalbumin. Consider SGLT2I if persistent elevation 08/21/2024 Elevated serum creatinine (ICD-10 - R79.89) continue to hold NSAIDS, continue good water intake and repeat as noted. Urine microalbumin is normal today. Consider ARB or SGLT2I if persistent elevation 08/21/2024 Irregular bowel habits (ICD-10 - R19.8) Recommend metamucil 1tsp daily titrating up to 4tsp per day. Probiotic for 2-6 weeks. 01/03/2024 Irregular bowel habits (ICD-10 - R19.8) recommend daily miralax and fiber, start with 1 tsp of each daily 08/21/2024 Hypothyroidism (acquired) (ICD-10 - E03.9) 08/21/2024 HTN (hypertension), benign (ICD-10 - I10) still normal without medication, amlodipine in the past 01/03/2024 Other Encouraged her to try taking only one of her trazodone tablets at night in order to decrease polypharmacy Plan Of Treatment Pending Test Test Name Order Date NUCLEAR MED : Cardiolite Stress 09/06/19 14 Mammogram : Right Breast 10/28/2014 H-CRP 09/10/2014 DEXA Hip and Spine - Screening Physical Therapy 08/06/2018 Physical Therapy 02/05/2020 H-CBC with AUTO DIFF 12/12/2014 H-VITAMIN B12 12/12/2014 H-CMP 12/12/2014 H-LIPID PANEL 12/12/2014 H-TSH 12/12/2014 H-VIT D, 25-HYDROXY 12/12/2014 H-SOPHY PROFILE 02/01/2017 C-CBC 01/24/2014 C-CMP 01/24/2014 C-LIPID PANEL 01/24/2014 VENIPUNCT, ROUTINE* 04/07/2016 M-Complete Blood Count Auto Diff 021 M-Complete Blood Count Auto Diff 019 M-Complete Blood Count Auto Diff 021 M-Comprehensive Metabolic Panel 11/05/19 21 M-Comprehensive Metabolic Panel 07/22/19 21 M-Comprehensive Metabolic Panel 07/24/19 20 M-Comprehensive Metabolic Panel 08/06/19 19 M-Hemoglobin A1C 11/28/2018 M-Lipid Panel 07/24/2019 M-Lipid Panel 08/06/2018 M-Lipid Panel 07/22/2020 M-Lipid Panel 11/04/2020 M-Thyroid Stimulating Hormone 11/04/2020 M-Thyroid Stimulating Hormone 07/24/2019 M-Thyroid Stimulating Hormone 07/22/2020 M-Thyroid Stimulating Hormone 08/06/2018 M-Vitamin D 25 Hydroxy 07/22/2020 M-Vitamin D 25 Hydroxy 07/24/2019 M-Vitamin D 25 Hydroxy 11/04/2020 LIPID PANEL, STANDARD (7600) 10/05/2022 LIPID PANEL, STANDARD (7600) 08/21/2024 COMPREHENSIVE METABOLIC PANEL (REFL) (37 015) 10/05/2022 COMPREHENSIVE METABOLIC PANEL (62882) CBC (INCLUDES DIFF/PLT) (6399) TSH W/REFLEX TO FT4 (46457) 10/05/2022 CREATINE KINASE (CK) 12/06/2023 COMP METABOLIC PANEL 12/06/2023 C-REACTIVE PROTEIN 12/06/2023 HEMOGLOBIN A1C 12/06/2023 LIPID PANEL 12/06/2023 MAGNESIUM 12/06/2023 CBC AUTO W DIFF 12/06/2023 SEDIMENTATION RATE 12/06/2023 TSH REFLEX ([facility]) 12/06/2023 VITAMIN D3 25-OH 12/06/2023 Insurance Providers Payer Name Payer Address Payer Phone Subscriber Number Group Number Insured Name Patient Relationship to Insured Coverage Start Date Coverage End Date [employer] MEDICARE [address] [address] [place] [address] [id number] Barbara Ortiz Self - patient is the insured Medications Administered Medication Instructions Date of Administration Dosage Notes Cyanocobalamin/B-12 Pt's Own Medication 09/18/2014 1 mL Cyanocobalamin/B-12 Pt's Own Medication 09/25/2014 Cyanocobalamin/B-12 Pt's Own Medication 10/02/2014 Cyanocobalamin/B-12 Pt's Own Medication 10/07/2014 Dexamethasone 4mg Injection 12/07/2022 4 mg Triamcinolone Acetonide 40mg Injection 12/12/2017 1 mL Triamcinolone Acetonide 40mg Injection 11/21/2019 1 mL Triamcinolone Acetonide 40mg Injection 02/05/2020 1 mL Kenalog 04/07/2016 1 mL Medical (General) History Medical History History ICD Code Psoriasis Arthritis 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 Insomnia Anxiety Tobacco use Normal mammogram 12/13 Colonscopy and EGD 2020 Colonoscopy 2023, Dr Diamond, normal. Re peat 5-7 years Surgical History Surgery Date(Month/Year) d and c 1979 and 1 after tubal 1979 bunion both feet 2001 skin graft 2002 colonoscopy 2016 Heart cath 03/2019 right ring finger fx 11/2019 skin cancer on face
--- OUTSIDE RECORDS SUMMARY | 2024-12-12 16:57 | XMS_ITS | Data Portability ---
Author Organization [facility] [place] [facility] Address [address] [facility] [facility] [place] [address] Assessment No assessment recorded. Plan of Treatment Reminders Order Date Submit Date Provider Last Modified By Organization Details Last Modified Time Details Appointments None record ed. Lab None record ed. Referral None record ed. Procedures None record ed. Surgeries None record ed. Imaging None record ed. Medication Orders None record ed. Patient TargetsNo targets recorded. Patient InstructionsNo instructions recorded. Reason for Referral None Reported. Medical Equipment None Reported. Vitals None Recorded Social History None recorded. Functional Status None recorded. Mental Status None recorded. Family History Nothing Reported. Medical History No medical history recorded. Gynecological HistoryNo gynecological history recorded. Obstetrics History GPAL:G 0 P 0 0 0 0 Past Encounters Encounter ID Performer Location Encounter Start Date Encounter Closed Date Diagnosis/Indication Diagnosis SNOMED-CT Code Diagnosis ICD10 Code Diagnosis Note [id number] SHUN SOOD MD [address] [address] 07/19/2023 12:29:49 08/01/2023 12:41:16 Health Concerns Section Related Observation LastModified by Organization Detai ls LastModified Time None Recorded Concern Status LastModified by Organization Details LastModified Time None Recorded Advance Directives Directive None Recorded Payers Insurance Date Sequence Insurance Name Policy Number Policy Douglsa Covered Member ID Douglas Member ID Guarantor Name 08/09/2023 1 [employer] (MEDICARE REPLACEMENT/ ADVANTAGE - HMO) [id number] Barbara Huggins [id number] Barbara Huggins OBGyn Episode No OBEpisode recorded.
[2024-12-12 16:59] LABS: Adenovirus F 40/41, stool Not Detected (NotDetected); Astrovirus Not Detected (NotDetected); Campylobacter Not Detected (NotDetected); Clostridium Difficile A/B, PCR Not Detected (NotDetected); Cryptosporidium Not Detected (NotDetected); Cyclospora Cayetanesis Not Detected (NotDetected); Entamoeba histolytica Not Detected (NotDetected); Enteroaggregative E coli Not Detected (NotDetected); Enteropathogenic E coli Not Detected (NotDetected); Enterotoxigenic E coli Not Detected (NotDetected); Giardia lamblia Not Detected (NotDetected); Norovirus Not Detected (NotDetected); Plesimonas Shigalloides, PCR Not Detected (NotDetected); Rotavirus A Not Detected (NotDetected); Salmonella, PCR Not Detected (NotDetected); Sapovirus Not Detected (NotDetected); Shiga-like toxin E coli Not Detected (NotDetected); Shigella Enterovasive E coli Not Detected (NotDetected); Vibrio Cholerae Not Detected (NotDetected); Vibrio, PCR Not Detected (NotDetected); Yersinia Entercolitica, PCR Not Detected (NotDetected)
== END 2024-12-12 23:59 | disposition home or self-care (01) ==
LOC: LAB 16:55
PROVIDERS: PCP Internal Medicine Adolescent Medicine; Visit Provider Internal Medicine Gastroenterology
DX: K52.9 Noninfective gastroenteritis and colitis, unspecified (principal); R14.0 Abdominal distension (gaseous)
CPT/HCPCS: 82656; 83630; 83993; 87506

== ENCOUNTER 2025-04-23 09:45 | Outpatient (CLI) | payer MEDICARE, SELFPAY ==
--- OUTSIDE RECORDS SUMMARY | 2024-09-23 09:30 | XMS_ITS | Continuity of Care Document ---
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 Name Role Phone Eleuterio Valverde OD Unavailable Unavailable Allergies, Adverse Reactions, Alerts Substance Reaction Status Criticality morphine Active No Information codeine Active No Information Medications Medication Instructions Dosage Effective Dates (start - stop) Status Comments Eliquis 5 mg tablet take 1 tablet by ora l route 2 times every day 5 MG - Active lisinopril 10 mg tablet take 1 tablet by oral route every day 10 MG - Active sotalol 80 mg tablet take 1 tablet by or al route 2 times every day 80 MG - Active Praluent Pen 150 mg/mL subcutaneous pen injector inject 1 milliliter by subcutaneous route every 2 weeks in the abdomen, thigh, or upper arm rotating injection sites 150 MG - Active Paxil 20 mg tablet take 1 tablet by ora l route every day 20 MG - Active Procedures Procedure Date EYE EXAM & TREATMENT Advance Directives Directive Yes / No Effective Date File Name No Information Encounters Encounter Description Practice Location Reason(s) For Visit Diagnoses Date Provider [facility], [address] [place] [address], [facility], tel:[phone] [facility] Eye exam (chief complaint) Presence of intraocular lensPresbyopiaRegular astigmatism, bilateral Aug- Abram Mcclellan. [address] [place] [address], . tel:[phone] [facility], [address], [place], [facility], tel:[phone] [address] [facility] No Information Abram Mcclellan. [address] [place] [address]. tel:[phone] Family History Family Member Type Diagnosis Age At Onset No Information Payers Payer name Insurance type Covered constitution party ID Jose A moraes(s) Eye [employer] CI [id number] Social History Type Description Quantity Date Captured Comments Alcohol Use Details Unknown Caffeine Use Details Unknown Tobacco Use Status No Information Smoking Status No Information Sex Female Sexual Orientation Straight or heterosexual Jul Gender Identity Female Vital Signs Date / Time: Height Weight BMI Pulse Rate Blood Pressure Temperature Respiratory Rate Body Surface Area Head Circumference Head Circ. Percentile Wt./Matthew. Percentile BMI percentile Pulse Ox Inhaled Ox 1:13 PM 60.00 in 69.400 kg (153.00 lbs) 29.8 8 kg/m eter (2) 61 /min 159/90 mm[Hg] Chief Complaint And Reason For Visit From encounter dated '09/23/2024 13:30'. Eye exam (chief complaint) Plan Of Treatment Date Type Action Status Goal Lipid panel. Due on due Goal Generalized Anxi ety Disorder - 7 (KARRIE-7). Due on due Goal Diabetes screening. Due on M due Goal TSH. Due on due Goal Unhealthy drug use screening . Due on due Goal DEXA scan. Due on due Goal Vitamin D. Due on due Goal Vitamin B12. Due on due Goal Follow up Plan f or abnormal BMI (Less than 18.5, greater than 25). Due on due Goal Tobacco Use Screening. Due o n due Goal Pneumococcal vaccine. Due on due Goal CBC. Due on due Goal Drug Abuse Scree jessica Test (DAST-10). Due on due Goal Depression screening. Due on due Goal CMP. Due on due Goal Obtain Height, Weight, and B ND. Due on due Goal Tobacco screening. Due on Dc due Goal Tobacco Use Cessation Counse ling. Due on due Goal Influenza vaccine. Due on due Goal Hepatitis C Screening. Due o n due Goal Lipid panel. Due on due Goal Follow up Plan f or abnormal BMI (Less than 18.5, greater than 25). Due on due Goal Tobacco Use Cessation Counse ling. Due on due Goal CT-Colonography. Due on due Goal Influenza vaccine. Due on Dc due Goal Generalized Anxi ety Disorder - 7 (KARRIE-7). Due on due Goal Vitamin D. Due on due Goal Tobacco screening. Due on due Goal CBC. Due on due Goal Diabetes screening. Due on due Goal DEXA scan. Due on due Goal Colonoscopy. Due on due Goal Unhealthy drug use screening . Due on due Goal Hepatitis C Screening. Due o n due Goal TSH. Due on due Goal Drug Abuse Scree jessica Test (DAST-10). Due on due Goal FOBT. Due on due Goal CMP. Due on due Goal Obtain Height, Weight, and B ND. Due on due Goal Depression screening. Due on due Goal FIT-DNA. Due on due Goal Tobacco Use Screening. Due o n due Goal Pneumococcal vaccine. Due on due Goal Mammogram. Due on due Goal Vitamin B12. Due on 025 due Goal FIT. Due on due Appointment Barbara Sorto BOOKED History Of Present Illness Encounter Date Complaint History Of Prese nt Illness Eye exam Instructions Date Instruction Additional Infor balbirion Impression/Plan Related to Presb yopia Impression/Plan Related to Prese nce of intraocular lens Assessments Type Assessment Date assessment Presence of intraocular lens Aug assessment Presbyopia impression Presbyopia: H52.4 impression Presence of intraocular lens: Z9 6.1 assessment Regular astigmatism, bilateral M
--- OUTSIDE RECORDS SUMMARY | 2024-09-28 17:30 | XMS_ITS ---
Author Organization [facility] [place] Address [address] [place] [address] Care Team Providers Care Construction Scheduler Name Role Phone AuroraSixto miguel Primary Care Provider [phone] Migration, Provider Unavailable Unavailable Allergies Allergen (clinical drug ingredient) Drug/Non Drug Allergy documented on EMR Reaction Allergy Type Onset Date Status Neosporin Unknown Drug Allergy Active [facility] Encounter Medications Medication SIG (Take, Route, Frequency, Duration) Notes Start Date End Date Status Synthroid 25 MCG 1 tab(s) orally once a day; Duration: 90 days Active Simvastatin 10 MG 1 tab(s) orally once a day (in the evening); Duration: 90 days 01/25/2024 Active buPROPion HCl ER (XL) 150 MG 1 tab(s) orally every 24 hours; Duration: 90 days Active PARoxetine HCl 40 MG 1 tab(s) orally once a day Active Cyclobenzaprine HCl 5 MG 1 tab(s) orally at night as needed for muscle spasm; Duration: 90 days Active Fluticasone Propionate 50 MCG/ACT 1 spray(s) intranasally once a day; Duration: 90 days Active Vitamin D3 1 TAB(S) ORALLY ONCE A DAY *Please review and pick correct strength-formulat ion from [employer] options. If intended option is not shown, discontinue and re-order from Quick Search* Active Multivitamin - 1 tab(s) orally once a day; Duration: 30 day(s) Active Vitamin C 500 MG 1 tab(s) orally once a day; Duration: 30 day(s) Active traZODone HCl 100 MG 2 tablets orally once a day at bedtime Active IMODIUM 2 MG 1 CAP(S) ORALLY EVERY 4 HOURS prn *Please review for potential replacement for e-prescription and drug interaction check* Active Encounters Encounter Location Date Provider Diagnosis [facility] [address] [place] [address] 09/28/2024 Provider Migration Plan Of Treatment No Information Progress Notes * Barbara HUGGINS LDOB:12/1955 (69 yo F)Acc No.[id number]:09/28/2024 Patient: Barbara KELLY Provider: Magy little Migration :1955 A ge:69 Y S ex:Female Date:09/28/2024 Address:[address] [place] [address], [address] Pcp:Sixto Savage Subjective: * Chief Complaints: * 1 . Multum To [employer] Conversion Encounter. * Medical History: * Medications: T aking IMODIUM 2 MG CAPSULE 1 CAP(S) ORALLY EVERY 4 HOURS , Notes to Pharmacist: prn *Please review for potential replacement for e-prescription and drug interaction check*, Taking Multivitamin - Tablet 1 tab(s) orally once a day , Taking Vitamin D3 1 TAB(S) ORALLY ONCE A DAY , Notes to Pharmacist: *Please review and pick correct strength-formulation from [facility] options. If intended option is not shown, discontinue and re-order from Quick Search*, Taking Fluticasone Propionate 50 MCG/ACT Suspension 1 spray(s) intranasally once a day , Taking Vitamin C 500 MG Tablet 1 tab(s) orally once a day , Taking traZODone HCl 100 MG Tablet 2 tablets orally once a day at bedtime , Taking Cyclobenzaprine HCl 5 MG Tablet 1 tab(s) orally at night as needed for muscle spasm , Taking PARoxetine HCl 40 MG Tablet 1 tab(s) orally once a day , Taking buPROPion HCl ER (XL) 150 MG Tablet Extended Release 24 Hour 1 tab(s) orally every 24 hours , Taking Simvastatin 10 MG Tablet 1 tab(s) orally once a day (in the evening) , Taking Synthroid 25 MCG Tablet 1 tab(s) orally once a day * Allergies: N eosporin. Objective: * Vitals: Assessment: Plan: * Treatment: * * Electronic signature of Prov malathir Migration on 04/23/2025 at 10:09 AM EDT Sign off status: Pending * Provider: Magy little Migration Date: 0 09/28/2024 Generated for Maria D ayon/Parish/Susi on: 1 10:09 AM EDT
--- OUTSIDE RECORDS SUMMARY | 2024-11-26 07:30 | XMS_ITS ---
Author Organization [facility] Address [address] [place] [address] Care Team Providers Care Lab Systems Analyst Name Role Phone Sixto Savage Primary Care Provider REASON FOR VISIT fu Encounters Encounter Location Date Provider Diagnosis [facility] [address] [address] 11/26/2024 Sixto Savage Plan Of Treatment No Information Progress Notes * Barbara HUGGINS LDOB:12/1955 (69 yo F)Acc No.[id number]:11/26/2024 Progress Notes Patient: Barbara KELLY Provider: Alexandre Savage MD :1955 A ge:69 Y S ex:Female Date:11/26/2024 Address:[address] [place] [address], [address], [id number] Subjective: * Chief Complaints: * 1 . Fu. * Medical History: Objective: * Vitals: Assessment: Plan: * Treatment: * * Electronic signature of Richie Savage MD FAAP on 04/23/2025 at 10:08 AM EDT Sign off status: Pending * Provider: Alexander Savage MD Date: 0 11/26/2024 Generated for Printi ng/Faxing/eTransmitting on: 1 10:08 AM EDT
--- NOTE | 2025-04-23 09:49 | CT_ITS ---
FINAL REPORT CLINICAL HISTORY: SCREENING current smoker 1 ppd / 30 years COMPARISON: 01/04/2024 FINDINGS: CTDI vol (mGy): 2.90 DLP: 99.[address] images of the chest were obtained using the low-dose protocol for screening. The ascending aorta measures 3.8 cm. There is no evidence of mediastinal or hilar mass or adenopathy. No axillary mass or adenopathy is identified. On the lung window images, nodule in the posterior left upper lobe measuring 3 mm on image 26 of series 4 is again seen. There is also a 3 mm left upper lobe nodule on image 39 of series 4 and several small nodules in the posterior right upper lobe measuring up to 4 mm on image 21 of series 4. All are stable from prior exam. No new mass or nodule is identified. IMPRESSION: Stable pulmonary nodules. Lung RADS category 2. Recommend 12 month followup low-dose CT for further evaluation. Reviewed, Interpreted and Dictated by Duy Rebolledo MD Transcribed by Kasandra Castro Authenticated and [facility]
--- NOTE | 2025-04-23 09:49 | MM_ITS ---
PROCEDURE INFORMATION: Exam: MG Bilateral Screening 3D Mammography Exam date and time: 04/23/2025 9:48 AM Age: 69 years old Clinical indication: Screening mammogram TECHNIQUE: Imaging protocol: Bilateral Screening tomosynthesis and 2D mammography including computer-aided detection (CAD) when performed. COMPARISON: 1. MG MM DIG MAMM DX UNILAT RT CAD 05/07/2024 3:03 PM 2. MG MM DIG SCREENING MAMM BI W/CAD 04/15/2024 4:41 PM 3. MG MM DIG MAMM DX UNILAT RT CAD 05/05/2023 2:37 PM FINDINGS: MAMMOGRAPHY: Breast composition: There are scattered areas of fibroglandular density. Mass: None. Architectural distortion: No new or suspicious architectural distortion. Calcifications: No new or suspicious calcifications are present Asymmetric density: No new or suspicious asymmetric density is present Skin thickening: None. Axillary adenopathy: None. IMPRESSION: No mammographic evidence of malignancy. Recommend annual screening mammography unless otherwise clinically indicated. ASSESSMENT: BI-RADS category 1: Negative.
--- OUTSIDE RECORDS SUMMARY | 2025-04-23 10:08 | XMS_ITS | Clinical Summary ---
Author Organization [facility] Address [address] [place] [address] Care Team Providers Care Structural Engineering Drafting Officer Name Role Phone Sixto Savage MD Primary Care Provider [phone] Social History Tobacco Use Types Packs/Day Years Used Date Smoking Tobacco: Never Assessed Comments Unknown Sex and Gender Information Value Date Recorded Sex Assigned at Not on file Legal Sex Female 8:16 PM EDT Gender Identity Not on file Sexual Orientation Not on file Plan of Treatment Health Maintenance Due Date Last Done Comments [facility]-Bone Density Scan 1956 [facility]-Depression Screening 1956 [facility]-Hepatitis C Screening 1956 [facility]-Medicare Annual Wellness (AWV) 1956 [facility]-/Child/Adol SDOH Screenings 1956 [facility]- SDOH Screenings 1974 [facility]-Adult SDOH Screenings 1974 CT Colonography 2001 Colonoscopy 2001 FIT-DNA 2001 FIT 2001 FOBT 2001 Sigmoidoscopy 2001 [facility]-Colorectal Cancer Screening 2001 [facility]-Breast Cancer Screening 2006 [facility]-Zoster Vaccines (1 of 2) 2006 [facility]-Pneumococcal Vaccine: 50+ Years (3 of 3 - PCV20 or PCV21) 05/07/2023 05/07/2018, 05/03/2017 [id number] Vaccine (3 - season) 2025 11/05/2020, 10/08/2020 [facility]-Influenza Vaccine (#1) 02/24/202504/21, 04/30/2020, 04/09/2019, Additional history exists [facility]-DTaP,Tdap,and Td [...] to complete this topic Insurance [address] [place] [address] [employer] MEDICARE Care Teams Structural Engineering Drafting Officer Relationship Specialty Start Date End Date Sixto Savage MD [address] [place] [address] PCP - General 11/06/20
--- OUTSIDE RECORDS SUMMARY | 2025-04-23 10:09 | XMS_ITS | Patient Health Record ---
Author Organization [facility] [place] Address [address] [place] [address] Care Team Providers Care Senior Integration Developer Name Role Phone Auroramyriam Sixto Primary Care Provider [phone] Khadijah Marques Unavailable [phone] Migration, Provider Unavailable Unavailable Allergies Allergen (clinical drug ingredient) Drug/Non Drug Allergy documented on EMR Reaction Allergy Type Onset Date Status Neosporin Unknown Drug Allergy Active Results Component Value Reference Range Notes TSH W/REFLEX TO FT4 (61423) Reviewed date:03/19/2025 08:42:50 AM Interpretation: Performing Lab:[facility] [address], 99tests [id number] Raheem Davalos Notes/Report: FASTING: YES FASTING:YES NON-FASTING; NON-FASTING; NON-FASTING; NON-FASTING TSH W/REFLEX TO FT4 2.30 0.40-4.50 mIU/L CBC (INCLUDES DIFF/PLT) (639 9) Reviewed date:03/19/2025 08:42:49 AM Interpretation: Performing Lab:[facility] [address], InstantMarketingNcevUC[address] Raheem Davalos Notes/Report: NON-FASTING; NON-FASTING; NON-FASTING; NON-FASTING FASTING:YES FASTING: YES WHITE BLOOD CELL COUNT 7.2 3.8-10.8 Thousand/ uL RED BLOOD CELL COUNT 3.96 3.80-5.10 Million/uL HEMOGLOBIN 12.9 11.7-15.5 g/dL HEMATOCRIT 39.4 35.0-45.0 % MCV 99.5 80.0-100.0 fL MCH 32.6 27.0-33.0 pg MCHC 32.7 32.0-36.0 g/dL For adults, a slight decrease in the calculated MCHC value (in the range of 30 to 32 g/dL) is most likely not clinically significant; however, it should be interpreted with caution in correlation with other red cell parameters and the patient's clinical condition. RDW 13.1 11.0-15.0 % PLATELET COUNT 269 140-400 Thousand/uL MPV 10.5 7.5-12.5 fL ABSOLUTE NEUTROPHILS 4075 1857-6498 cells/uL ABSOLUTE LYMPHOCYTES 2102 850-3900 cells/uL ABSOLUTE MONOCYTES 634 200-950 cells/uL ABSOLUTE EOSINOPHILS 310 15-500 cells/uL ABSOLUTE BASOPHILS 79 0-200 cells/uL NEUTROPHILS 56.6 LYMPHOCYTES 29.2 MONOCYTES 8.8 EOSINOPHILS 4.3 BASOPHILS 1.1 COMPREHENSIVE METABOLIC PANE L (57412) Reviewed date:03/19/2025 08:42:49 AM Interpretation: Performing Lab:CB, [facility] [address] [facility] HospitalQimcRT[address] Raheem Davalos Notes/Report: NON-FASTING; NON-FASTING; NON-FASTING; NON-FASTING FASTING:YES FASTING: YES GLUCOSE 92 65-99 mg/dL Fasting reference interval UREA NITROGEN (BUN) 11 7-25 mg/dL CREATININE 1.26 0.50-1.05 mg/dL EGFR 47 > OR = 60 mL/min/1.73m2 BUN/CREATININE RATIO 9 6-22 (calc) SODIUM 140 135-146 mmol/L POTASSIUM 4.8 3.5-5.3 mmol/L CHLORIDE 107 98-110 mmol/L CARBON DIOXIDE 27 20-32 mmol/L CALCIUM 9.6 8.6-10.4 mg/dL PROTEIN, TOTAL 7.2 6.1-8.1 g/dL ALBUMIN 4.5 3.6-5.1 g/dL GLOBULIN 2.7 1.9-3.7 g/dL (calc) ALBUMIN/GLOBULIN RATIO 1.7 1.0-2.5 (calc) BILIRUBIN, TOTAL 0.6 0.2-1.2 mg/dL ALKALINE PHOSPHATASE 76 37-153 U/L AST 17 10-35 U/L ALT 13 6-29 U/L LIPID PANEL, STANDARD (7600) Reviewed date:03/19/2025 08:42:49 AM Interpretation: Performing Lab:[facility], [facility], Miguel A ArrietaEfmwSC[address] Raheem Jasbir Davalos Notes/Report: NON-FASTING; NON-FASTING; NON-FASTING; NON-FASTING FASTING:YES FASTING: YES CHOLESTEROL, TOTAL 182 <200 mg/dL HDL CHOLESTEROL 46 > OR = 50 mg/dL TRIGLYCERIDES 317 <150 mg/dL If a non-fasting specimen was collected, consider repeat triglyceride testing on a fasting specimen if clinically indicated. Ria et al. J. of Clin. Lipidol. 2015;9:129-169. LDL-CHOLESTEROL 94 Reference range: <100 Desirable range <100 mg/dL for primary prevention; <70 mg/dL for patients with CHD or diabetic patients with > or = 2 CHD risk factors. LDL-C is now calculated using the Filippo-Robb calculation, which is a validated novel method providing better accuracy than the Friedewald equation in the estimation of LDL-C. Filippo MEJIA et al. CHANDANA. 2013;310(19): 9905-8648 (http://education.[employer].com/faq/SSH285) CHOL/HDLC RATIO 4.0 <5.0 (calc) NON HDL CHOLESTEROL 136 <130 mg/dL (calc) For patients with diabetes plus 1 major ASCVD risk factor, treating to a non-HDL-C goal of <100 mg/dL (LDL-C of <70 mg/dL) is considered a therapeutic option. Microalbumin (In-House) Reviewed date:08/22/2024 08:03:28 AM Interpretation:Normal Performing Lab: Notes/Report: Normal ALB 10mg CRE 100mg A:C <30mg Medications Medication SIG (Take, Route, Frequency, Duration) Notes Start Date End Date Status Cyclobenzaprine HCl 5 MG 1 tab(s) orally at night as needed for muscle spasm; Duration: 90 days Active IMODIUM 2 MG 1 CAP(S) ORALLY EVERY 4 HOURS prn *Please review for potential replacement for e-prescription and drug interaction check* Active PARoxetine HCl 40 MG 1 tab(s) orally once a day; Duration: 90 days Active Synthroid 25 MCG 1 tab(s) orally once a day; Duration: 90 days Active Losartan Potassium 25 MG 1 tablet Orally Once a day; Duration: 30 day(s) 03/19/2025 Active traZODone HCl 100 MG 2 tablets orally once a day at bedtime; Duration: 90 days Active Vitamin D3 1 TAB(S) ORALLY ONCE A DAY *Please review and pick correct strength-formulat ion from ComptTIA options. If intended option is not shown, discontinue and re-order from Quick Search* Active Simvastatin 10 MG TAKE 1 TABLET EVERY EVENING; Duration: 90 Active Multivitamin - 1 tab(s) orally once a day; Duration: 30 day(s) Active Vitamin C 500 MG 1 tab(s) orally once a day; Duration: 30 day(s) Active buPROPion HCl ER (XL) 150 MG 1 tab(s) orally every 24 hours; Duration: 90 days Active Fluticasone Propionate 50 MCG/ACT 1 spray(s) intranasally once a day; Duration: 90 days Active Immunizations Vaccine Route Administration Date Status [...] Problem Status W/U Status Risk Notes Problem Generalized anxiety disorder (67099375) Generalized anxiety disorder (F41.1) Active confirmed Problem Panlobular emphysema (1476893) Panlobular emphysema (J43.1) Active confirmed Problem Psoriasis (4599158) Psoriasis, unspecified (L40.9) Active confirmed Problem Abnormal findings on diagnostic imaging of breast (716904260) Other abnormal and inconclusive findings on diagnostic imaging of breast (R92.8) Active confirmed Problem Nicotine dependence (05394550) Personal history of nicotine dependence (Z87.891) Active confirmed Problem Sciatica (35045417) Left sciatic nerve pain (M54.32) Active confirmed Problem Allergic rhinitis (84089067) Allergic rhinitis (J30.9) Active confirmed Problem Hypothyroidism (40565982) Hypothyroidism (acquired) (E03.9) Active confirmed Problem Hyperlipidemia (79785412) Hyperlipidemia (E78.5) Active confirmed Problem Essential hypertension (56961342) HTN (hypertension), benign (I10) Active confirmed Problem Body mass index 25-29 - overweight (751273154) BMI 25.0-25.9,adult (Z68.25) Active confirmed Problem Gastroesophageal reflux disease (789586863) Gastroesophageal reflux disease, esophagitis presence not specified (K21.9) Active confirmed Problem Osteoarthritis of knee (473516480) Primary osteoarthritis of right knee (M17.11) Active confirmed Problem Chronic insomnia (224503959) Chronic insomnia (F51.04) Active confirmed Problem Arthropathy (692772043) Arthropathy, multiple sites (M12.9) Active confirmed Problem Polyp of colon (disorder) (22786906) Colon polyps (K63.5) Active confirmed Problem Tobacco use and exposure (129943849) Current tobacco use (Z72.0) Active confirmed Problem Moderate recurrent major depression (47087853) Moderate episode of recurrent major depressive disorder (F33.1) Active confirmed Problem Drug-induced sleep disorder (900550274) 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) Active confirmed Problem Tobacco dependence (20999306) Tobacco dependence (F17.200) Active confirmed Problem Alcohol abuse (62577821) Alcohol consumption binge drinking (F10.10) Active confirmed Problem Sciatica (14290603) Acute left-s ided low back pain with left-sided sciatica (M54.42) Active confirmed Problem Localized, primary osteoarthritis of the pelvic region and thigh (183040070) Primary osteoarthritis of left hip (M16.12) Active confirmed Problem Low back pain (finding) (699750570) Low back pain at multiple sites (M54.5) Active confirmed Problem Neuralgia (22791051) Neuropathic pain of left lower extremity (M79.2) Active confirmed Problem Osteopenia following menopause (disorder) (299901581) Osteopenia after menopause (M85.80) Active confirmed Problem Chronic kidney disease stage 3A (disorder) (182865604) Stage 3a chronic kidney disease (CKD) (N18.31) Active confirmed Vital Signs Heart Rate 74 /min 02/12/2025 Temperature 97.6 degrees Fahrenheit 02/12/2025 Blood pressure diastolic 82 mm Hg 02/12/2025 Height 5 ft 8 in in 02/12/2025 Blood pressure systolic 132 mm Hg 02/12/2025 Weight 171 lbs 02/12/2025 BMI 26 kg/m2 02/12/2025 Encounters Encounter Location Date Provider Diagnosis [place] [facility] [place] [address] [place] [address] 09/28/2024 Provider Migration [facility] [address] [address] 08/21/2024 Khadijah Marques Hyperlipidemia E78.5 ; Arthralgia of multiple sites M25.50 ; Moderate episode of recurrent major depressive disorder F33.1 ; Elevated serum creatinine R79.89 ; Irregular bowel habits R19.8 ; Hypothyroidism (acquired) E03.9 and HTN (hypertension), benign I10 [facility] [address] [address] 11/21/2024 Sixto Savage Cat bite, initial encounter W55.01XA [facility] [address] [address] 02/12/2025 Khadijah Marques Hyperlipidemia E78.5 ; Medicare annual wellness visit, subsequent Z00.00 ; Arthralgia of multiple sites M25.50 ; Moderate episode of recurrent major depressive disorder F33.1 ; Elevated serum creatinine R79.89 ; Irregular bowel habits R19.8 ; Hypothyroidism (acquired) E03.9 ; HTN (hypertension), benign I10 ; BMI 26.0-26.9,adult Z68.26 ; Tobacco use Z72.0 and Personal history of tobacco use Z87.891 [facility] [address] [address] 08/16/2024 Sixto Savage Hypothyroidism (acquired) E03.[address] [place] [address] [address] 12/10/2024 Khadijah Shelli Moderate episode of recurrent major depressive disorder F33.1 [place] [facility] [place] [address] [place] [address] 02/17/2025 Khadijah Marques Visit for screening mammogram Z12.31 and Personal history of nicotine dependence Z87.[address] [place] [address] [place] [address] 03/19/2025 Sixto Savage Arthralgia of multip le sites M25.50 Assessments Encounter Date Diagnosis (ICD Code) Assessment Notes Treatment Notes Treatment Clinical Notes Section Notes 08/16/2024 Hypothyroidism (acquired) (ICD-10 - E03.9) 08/21/2024 [...] recurrent major depressive disorder (ICD-10 - F33.1) 02/12/2025 Hyperlipidemia (ICD-10 - E78.5) intolerant to several statins in the past but tolerating simvastatin well to this point, labs as noted 02/12/2025 Medicare annual wellness visit, subsequent (ICD-10 - Z00.00) 02/17/2025 Visit for screening mammogram (ICD-10 - Z12.31) 03/19/2025 Arthralgia of multiple sites (ICD-10 - M25.50) 02/17/2025 Personal history of nicotine dependence (ICD-10 - Z87.891) 02/12/2025 Arthralgia of multiple sites (ICD-10 - M25.50) improved overall, off of NSAID as noted, continue cyclobenzaprine PRN, tylenol PRN 08/21/2024 Moderate episode of recurrent major depressive disorder (ICD-10 - F33.1) continue wellbutrin, paxil, return precautions reviewed 08/21/2024 Elevated serum creatinine (ICD-10 - R79.89) continue to hold NSAIDS, continue good water intake and repeat as noted. Urine microalbumin is normal today. Consider ARB or SGLT2I if persistent elevation 02/12/2025 Moderate episode of recurrent major depressive disorder (ICD-10 - F33.1) continue wellbutrin, paxil, return precautions reviewed 02/12/2025 Elevated serum creatinine (ICD-10 - R79.89) continue to hold NSAIDS with only occasional use as absolutely needed for pain control - we discussed risks/benefits. continue good water intake. Urine microalbumin is normal this year. 08/21/2024 Irregular bowel habits (ICD-10 - R19.8) Recommend metamucil 1tsp daily titrating up to 4tsp per day. Probiotic for 2-6 weeks. 08/21/2024 Hypothyroidism (acquired) (ICD-10 - E03.9) 02/12/2025 Irregular bowel habits (ICD-10 - R19.8) improved 02/12/2025 Hypothyroidism (acquired) (ICD-10 - E03.9) continue oral replacement 08/21/2024 HTN (hypertension), benign (ICD-10 - I10) still normal without medication, amlodipine in the past 02/12/2025 HTN (hypertension), benign (ICD-10 - I10) still normal without medication, amlodipine in the past 02/12/2025 BMI 26.0-26.9,adult (ICD-10 - Z68.26) stable 02/12/2025 Tobacco use (ICD-10 - Z72.0) strongly encouraged cessation, strong FH of lung cancer 02/12/2025 Personal history of tobacco use (ICD-10 - Z87.891) Plan Of Treatment Pending Test Test Name Order Date NUCLEAR MED : Cardiolite Stress 09/06/19 14 Mammogram : Right Breast 10/28/2014 H-CRP 09/10/2014 DEXA Hip and Spine - Screening Physical Therapy 08/06/2018 Physical Therapy 02/05/2020 Mammogram : Bilateral 02/17/2025 H-CBC with AUTO DIFF 12/12/2014 H-VITAMIN B12 12/12/2014 H-CMP 12/12/2014 H-LIPID PANEL 12/12/2014 H-TSH 12/12/2014 H-VIT D, 25-HYDROXY 12/12/2014 H-SOPHY PROFILE 02/01/2017 C-CBC 01/24/2014 C-CMP 01/24/2014 C-LIPID PANEL 01/24/2014 VENIPUNCT, ROUTINE* 04/07/2016 M-Complete Blood Count Auto Diff 021 M-Complete Blood Count Auto Diff 019 M-Complete Blood Count Auto Diff 021 M-Comprehensive Metabolic Panel 11/05/19 21 M-Comprehensive Metabolic Panel 07/22/19 21 M-Comprehensive Metabolic Panel 08/06/19 19 M-Comprehensive Metabolic Panel 07/24/19 20 M-Hemoglobin A1C 11/28/2018 M-Lipid Panel 07/24/2019 M-Lipid Panel 08/06/2018 M-Lipid Panel 07/22/2020 M-Lipid Panel 11/04/2020 M-Thyroid Stimulating Hormone 07/22/2020 M-Thyroid Stimulating Hormone 08/06/2018 M-Thyroid Stimulating Hormone 07/24/2019 M-Thyroid Stimulating Hormone 11/04/2020 M-Vitamin D 25 Hydroxy 11/04/2020 M-Vitamin D 25 Hydroxy 07/24/2019 M-Vitamin D 25 Hydroxy 07/22/2020 CT Scan : Chest, Lung Cancer Screening 0 02/17/2025 LIPID PANEL, STANDARD (7600) 08/21/2024 LIPID PANEL, STANDARD (7600) 10/05/2022 COMPREHENSIVE METABOLIC PANEL (REFL) (37 015) 10/05/2022 COMPREHENSIVE METABOLIC PANEL (11283) CBC (INCLUDES DIFF/PLT) (6399) TSH W/REFLEX TO FT4 (65819) 10/05/2022 CREATINE KINASE (CK) 12/06/2023 COMP METABOLIC [...] End Date [employer] MEDICARE [address] [address] [place] [address] [phone] [id number] [employer] abbottBarbara Self - patient is the insured Medications [...] neuropathy related to past trau ma Normal dexa 01/2017 - repeate d December 2018 with osteopenia with moderate fracture risk. Insomnia Anxiety with depression Tobacco use Colonscopy and EGD 2020 Colonoscopy 2023, Dr Diamond, normal. Re peat 5-7 years Surgical History Surgery Date(Month/Year) d and c 1979 and 1 after tubal 1980 bunion both feet 2002 skin graft 2002 colonoscopy 2016 Heart cath 03/2019 right ring finger fx 11/2019 skin cancer on face
--- OUTSIDE RECORDS SUMMARY | 2025-04-23 10:09 | XMS_ITS | Clinical Summary ---
Author Organization [facility] Address [address] [place] [address] Care Team Providers Care Water Systems Designer Name Role Phone Sixto Savage MD Primary Care Provider [phone] Allergies Active Allergy Reactions Criticality Noted Date Comments Neomycin-Bacitracin Zn-Polymyx Rash Low 06/25 Medications Adalimumab (HUMIRA SC) Inject under the skin. Active PARoxetine (PAXIL) 40 MG tablet Take 40 mg by mouth Every Morning. Active gabapentin (NEURONTIN) 600 MG tablet Take 600 mg by mouth 3 (Three) Times a Day. Active TRAZODONE HCL PO Take by mouth. Active Active Problems No known active problems Family History Medical History Relation Name Comments Cancer Father Lung disease Mother Relation Name Status Comments Father Mother Social History Tobacco Use Types Packs/Day Years Used Date Smoking Tobacco: Every Day Abuse Screen Answer Date Recorded Unsafe at Home or Work/School Not on file Feels Threatened by Someone? Not on file 02/2023 Does Anyone Keep You from Co ntacting Others or Doint Things Outside the Home? Not on file 04/03/2023 Physical Sign of Abuse Present Not on file 1 Housing Stability Answer Date Recorded Current Living Arrangements Not on file 02/2023 Potentially Unsafe Housing Conditions Not on rich e 04/03/2023 Family and Community Support Answer Yash e Recorded Help with Day-to-Day Activities Not on file 04/03/2023 Lonely or Isolated Not on file 04/03/2023 Employment Answer Date Recorded Do you want help finding or keeping work or a maddy b? Not on file 04/03/2023 Disabilities Answer Date Recorded Concentrating, Remembering, or Making Decisions Difficulty Not on file 04/03/2023 Doing Errands Independently Difficulty Not on fi le 04/03/2023 Education Answer Date Recorded Help with school or training? Not on file Preferred Language Not on file 04/03/2023 Comments No Sex and Gender Information Value Date Recorded Sex Assigned at Not on file Legal Sex Female 10:36 AM EDT Gender Identity Not on file Sexual Orientation Not on file Last Filed Vital Signs Vital Sign Reading Time Taken Comments Blood Pressure - - Pulse 101 06/25/2017 4:38 PM EST Temperature 36.6 C (97.8 F) 06/25/2017 4:38 PM EST Respiratory Rate 15 06/25/2017 4:38 PM EST Oxygen Saturation 96% 06/25/2017 4:38 PM EST Inhaled Oxygen Concentration - - Weight 80.8 kg (178 lb 3.2 oz) 06/25/2017 4:38 P M EST Height 167.6 cm (5' 6 ) 06/25/2017 4:38 PM EST Body Mass Index 28.76 06/25/2017 4:38 PM EST Plan of Treatment Health Maintenance Due Date Last Done Comments DXA SCAN 1956 TDAP/TD VACCINES (1 - Tdap) 1975 MAMMOGRAM 1996 COLOGUARD 2001 COLON CANCER SCREENING 5 YEAR SIGMOIDOSCOPY 2001 COLONOSCOPY [address] CANCER SCREENING 2001 CT COLONOGRAPHY 2001 FECAL OCCULT BLOOD TEST 2001 FIT Testing (1 year) 2001 Pneumococcal Vaccine 50+ (1 of 1 - PCV) 2006 ZOSTER VACCINE (1 of 2) 2006 ANNUAL PHYSICAL 06/25/2017 HEPATITIS C SCREENING 06/25/2017 INFLUENZA VACCINE 01/24/2025 COVID-19 Vaccine ( - season) [address] [place] [address] [facility] Care Teams Water Systems Designer Relationship Specialty Start Date End Date Sixto Savage MD [facility] [address] [address] PCP - General Adolescent Medicine 06/25/17
--- OUTSIDE RECORDS SUMMARY | 2025-04-23 10:09 | XMS_ITS | Data Portability ---
Author Organization [facility] TEA Sotomayor HUGHES CLOSED Address [address] [facility] [address] [address] [place] [address] Assessment No assessment recorded. Plan of Treatment [...] Diagnosis SNOMED-CT Code Diagnosis ICD10 Code Diagnosis IMO Codes Diagnosis Note [id number] SHUN SOOD MD [address] [address] 07/19/2023 12:29:49 08/01/2023 12:41:16 Health Concerns Section Related Observation LastModified by Organization Detai ls LastModified Time None Recorded Concern Status LastModified by Organization Details LastModified Time None Recorded Advance Directives Directive None Recorded Payers Insurance Date Sequence Insurance Name Policy Number Policy Douglas Covered Member ID Douglas Member ID Guarantor Name 08/09/2023 1 [employer] (MEDICARE REPLACEMENT/ ADVANTAGE - HMO) [id number] Barbara Huggins [id number] Barbara Huggins OBGyn Episode No OBEpisode recorded.
== END 2025-04-23 23:59 | disposition home or self-care (01) ==
LOC: RAD 09:46
PROVIDERS: PCP Internal Medicine Adolescent Medicine; Visit Provider Nurse Practitioner Family
DX: Z12.31 Encounter for screening mammogram for malignant neoplasm of breast (principal); R92.323 Mammographic fibroglandular density, bilateral breasts; R91.8 Other nonspecific abnormal finding of lung field; Z12.2 Encounter for screening for malignant neoplasm of respiratory organs; Z87.891 Personal history of nicotine dependence
CPT/HCPCS: 71271; 77063; 77067